=== PATIENT | female | born 1980 | race Caucasian/White ===

== ENCOUNTER 2016-11-14 17:36 | Inpatient (IN) | payer OTHER, MEDICAID ==
[~2016-11-14] VITALS: Ht 165.1 cm; Wt 70.7 kg
[~2016-11-14 17:36] MED LIST: HYDR-3605 PO; ONDA-53 PO
[2016-11-14 17:55] VITALS: BP 129/76; PULSE 113; RESP 20; O2SAT 100
--- NOTE | 2016-11-14 18:09 | ED.REPORT ---
HPI-General Illness Date of Service Nov 14, 2016 ED Provider: Rafael Wild MD Patient is a 36 year old female with a hx of endocarditis and AV valve replacement who presents to the ED via police for a [id number] exam complaining of progressively worsening sweats onset 3 days ago. Associated symptoms include midline, intermittent, sharp and dull chest pain and myalgia. She reports that her symptoms are similar to when she had endocarditis previously. She denies fever, abdominal pain, SOB, headache, vision changes, diarrhea, constipation, hematochezia, hematuria, or any other symptoms. She used IV heroin this morning. Nursing Notes Stated Complaint: FIT FOR USP Chief Complaint: General Complaint Nursing Notes Reviewed: Yes Allergies: Coded Allergies: No Known Allergies (Verified , 11/14/16) Miscellaneous Medications HydrOXYzine HCl (HydrOXYzine HCl) 10 Mg Tablet 10 MG PO Ondansetron (Ondansetron) 4 Mg Tablet 4 MG PO General Time Seen by MD: 18:07 Chief Complaint Other (Sweats ) Hx Obtained From: Patient Arrived By: Police Sudden in Onset?: Yes Onset Occurred: 3 days ago Symptom Duration: Since onset Location: : Chest Severity: Current: Mild Severity: Maximum: Mild Associated with: Denies: Headache, Vision change Pertinent Negative: Pt denies other symptoms Pertinent Negative: Exacerbated by nothing, Relieved by nothing Similar Sx Previous: Yes Past Medical History Past Medical History Notes: History of leaving [facility] History of bacterial endocarditis with subsequent prosthetic valve and endocarditis of prosthetic valve and valve replacement at [facility] in /March of this year. Consistently noncompliant with medical care and examined Past Medical History 1. 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 Heroin dependency. IV drug abuse with heroin and methamphetamine use. 3. Cigarette smoker with nicotine addiction. 4. Irregular menses. 5. C. difficile colitis treated July 2011. 6. Hep C Past Surgical History x3 cholecystectomy bioprosthetic aortic valve placement August 11, 2011 admit L arm abscess surgery October 2014 Gallbladder Tonsills Family History noncontributory Smoking History Current Every Day Smoker Social History Alcohol Use: Denies alcohol use Drug Use: IV drugs, Meth, THC, Other Other Social History: Poor social support, Local resident Ambulatory Status Independent Review of Systems Full Review of Systems Constitutional: Denies: Fever Respiratory: Denies: Shortness of breath Cardiovascular: Reports: Chest pain GI: Denies: Abdominal pain, Constipation, Diarrhea, Hematochezia Female: Denies: Hematuria Musculoskeletal: Reports: Myalgia Skin: Reports Diaphoresis Neurologic: Denies: Headache, Vision change Complete sys rev & neg: except as marked. Physical Exam Nursing note and vitals reviewed. Constitutional: Well-developed, well-nourished. Not diaphoretic. Head: Normocephalic and atraumatic. Mouth/Throat: Oropharynx is clear and moist. No oropharyngeal exudate. Eyes: EOM are normal. Pupils are 5-4 and equal, round, and reactive to light bilaterally Neck: Supple, no tracheal deviation. Cardiovascular: Normal rate, regular rhythm, Harsh 4/6 holosystolic murmur. Equal and intact distal pulses throughout. Pulmonary/Chest: Effort normal and breath sounds normal. No respiratory distress. Abdominal: Soft. No distension. There is no tenderness, rebound, or guarding. Musculoskeletal: Range of motion grossly intact, moving all extremities. Neurological: AOx3. Grossly nonfocal exam. Strength and sensation intact and equal to bilateral upper and lower extremities. Skin: Warm and mildly diaphoretic. No rashes or pallor appreciated. Psychiatric: Appropriate mood and affect. Behavior appears normal. Vital Signs Vital Signs Date Time Temp Pulse Resp B/P Pulse Ox O2 Delivery O2 Flow Rate FiO2 11/14/16 17:55 36.7 113 20 129/76 100 Room Air Interpretation & Diagnostics Lab Results Interpretation Result Diagram: 11/14/16184611/14/161846 Test 11/14/16 18:47 White Blood Count 7.5th/mm3 (3.8-10.1) Red Blood Count 3.95mil/mm3 (3.90-5.20) Hemoglobin 11.5g/dL (12.0-15.6) Hematocrit 35.8% (35.0-46.0) Mean Corpuscular Volume 90.6fL (81-100) Mean Corpuscular Hemoglobin 29.1pg (27.0-35.0) Mean Corpuscular Hemoglobin Concent 32.1% (32.0-37.0) Red Cell Distribution Width 13.1% (12.3-15.4) Platelet Count 315bil/L (150-400) Neutrophils (%) (Auto) 55.6% (40-74) Lymphocytes (%) (Auto) 30.0% (14-46) Monocytes (%) (Auto) 10.0% (4-12) Eosinophils (%) (Auto) 3.9% (0-5) Basophils (%) (Auto) 0.4% (0-3) D-Dimer 2.03mg/L FEU (<0.50) Sodium Level 142mEq/L (134-144) Potassium Level 3.7mEq/L (3.5-5.2) Chloride Level 106mEq/L (97-108) Carbon Dioxide Level 22mmol/L (18-29) Blood Urea Nitrogen 21mg/dL (6-20) Creatinine 0.86mg/dL (0.57-1.00) Estimat Glomerular Filtration Rate 108mL/min (>59) Glucose Level 89mg/dL (60-99) Lactic Acid Level 1.0mmol/L (0.4-2.0) Calcium Level 9.0mg/dL (8.5-10.1) Magnesium Level 2.0mg/dL (1.6-2.6) Total Bilirubin 0.5mg/dL (0.0-1.2) Aspartate Amino Transf (AST/SGOT) 23U/L (0-50) Alanine Aminotransferase (ALT/SGPT) 12U/L (0-32) Alkaline Phosphatase 70U/L (25-150) Total Creatine Kinase 462U/L (21-215) Total Protein 7.8g/dL (6.4-8.4) Albumin 3.6g/dL (3.4-5.0) Procalcitonin 0.13ng/mL (0.00-0.08) Hold Owens Top Tube Received (Received) ECG Interpretation ECG Interpretation: Sinus rate 86 Probable left atrial enlargement LVH Non-specific ST abnormalities from previous have improved. Time: 18:54 Interpreted by: ED physician X-Ray Chest Interpretation Chest Xray Interpretation: IMPRESSION: No acute cardiopulmonary disease. Dictated by: Dmitri Rosas M.D. on 11/14/2016 at 18:28 Approved by: Dmitri Rosas M.D. on 11/14/2016 at 18:29 View: Portable, 1 view Interpretation / Wet Read by: Interpret - Radiologist Re-Eval/Medical Decision Med Decision/Clinical Course 36-year-old female with a complex past medical history including endocarditis, aortic valve replacement, hepatitis C, and IV drug abuse presenting to the ED for evaluation of chest pain that she states is similar to when she has had endocarditis in the past. No acute ischemic changes on her EKG. She does have a harsh murmur. O2 sats are grossly within normal limits here, not dyspneic at this time. I discussed the case with the infectious disease specialist on-call , Dr. Truong, who recommended 3 sets of blood cultures and vancomycin. I initiated this in the ED and the patient will be admitted for further management and evaluation. Time of Eval: 19:38 Re-Evaluation/Progress Note: Discussed plan for admission. Patient understands and agrees with plan. All questions addressed at this time. Consultation #1: Referral / Consult Name: Yesenia Noyola DO Consulted With: Hospitalist Call Returned at: 20:08 Rice Farmer: Will see patient, Agrees with eval, Agrees with plan, Accepts admit Note: Discussed pt's case. Accepts admit. Consult infectious disease. Consultation #2: Referral / Consult Name: Geoff Truong MD Call Returned at: 20:15 Note: Discussed pt's case with infectious disease MD. Suggests vancomycin. Will consult. Counseled Regarding: Diagnosis, Lab results, Need for admission Discharge & Departure Primary Impression: Chest pain Chest pain type: unspecified Qualified Code: R07.9 - Chest pain, unspecified Additional Impression: History of bacterial endocarditis Disposition: ADMITTED TO HOSPITAL Discharge Condition All VS Reviewed: Yes Condition: Stable Referrals: August Rosas MD (PCP) Scribe Attestation Portions of this note were transcribed by Renny Jay. I, Dr. Wild personally performed the history, physical exam and medical decision-making; I reviewed and confirmed the accuracy of the information in the transcribed note. Signed by: Renny Jay 11/14/162019 copies to: August Rosas MD, William B MD Nov 14, 2016 18:09 RENNY JAY Nov 14, 2016 19:20
--- NOTE | 2016-11-14 18:31 | DRSVH ---
PROCEDURE: X-RAY CHEST ONE VIEW, PORTABLE ([id number]) INDICATIONS: 36 year-old female with chest pain. TECHNIQUE: One view of the chest was acquired. COMPARISON: [facility], CR, XR CHEST 2V AP/PA AND LAT, 07/07/2016, 9:03 AM. [facility], CR, XR CHEST 1VW (PORTABLE), 04/25/2016, 19:54. [facility], CR, XR CHEST 1 VW (PORTABLE), 04/19/2016, 16:06. FINDINGS: Surgical changes and devices: Patient is status post median sternotomy and cardiac valve replacement. Lungs and pleura: No pleural effusions or pneumothorax. Lungs are clear. Mediastinum: Mediastinal contours appear normal. Heart size is normal. Bones and chest wall: No suspicious bony lesions. Overlying soft tissues appear unremarkable. IMPRESSION: No acute cardiopulmonary disease. Dictated by: Dmitri Rosas M.D. on 11/14/2016 at 18:28 Approved by: Dmitri Rosas M.D. on 11/14/2016 at 18:29
[2016-11-14 18:53] LABS: BASOPHILS % (AUTO) 0.4 % (0-3); EOSINOPHILS % (AUTO) 3.9 % (0-5); Mean Corpuscular Hemoglobin 29.1 pg (27.0-35.0); Mean Corpuscular Volume 90.6 fL (81-100); NEUTROPHILS % (AUTO) 55.6 % (40-74); Platelet Count 315 bil/L (150-400)
[2016-11-14] MEDS ORDERED: 0.9% Sodium Chloride 1,000 ML IV ONE (19:05)
[2016-11-14 19:20] LABS: TROPONIN T < 0.010 ug/L (0.0-0.011)
[2016-11-14] MEDS ORDERED: Vancomycin Dose per Pharmacist XX ONE (20:15)
[2016-11-14] MEDS ORDERED: Ondansetron 2 mg/mL 2 mL Inj IVPUSH PRN ×2 (20:15→20:55)
[2016-11-14] MEDS ORDERED: Vancomycin Inj 1,500 MG in 0.9% Sodium Chloride 500 ML IV ONE (20:25)
[2016-11-14] MEDS: HYDROmorphone 0.5 mg/0.5 mL iSecure Syringe IVPUSH PRN ×2 (20:26→21:01)
[2016-11-14] MEDS ORDERED: Alum-Mag Hydrox-Simeth 30 mL Suspension PO PRN (20:55)
[2016-11-14] MEDS ORDERED: Polyethylene Glycol (PEG) 17 Gm Powder PO PRN (20:55)
[2016-11-14 21:07] VITALS: BP 92/33; PULSE 68; RESP 16; O2SAT 100
--- NOTE | 2016-11-14 21:17 | PCM.HPMED ---
Subjective Date of Service Nov 14, 2016 Primary Provider: Admitting Physician: Yesenia Noyola DO Primary Care Physician: Yuliana Smith MD Attending Physician: Yesenia Noyola DO Admit Status: From the Emergency Department, Remote Telemetry Chief Complaint: "chest pain" History of Present Illness: Ms. Diana Hair is a 36 year old woman with history of bacterial and fungal endocarditis, bio-prosthetic aortic valve replacement, and IV drug use who presented to the emergency department for retrosternal chest pain that started this morning. She was brought into the emergency department by police for a fit- for-custodial exam. She reports that she was washing dishes when her chest pain started this morning and has been intermittent since it started. It is retrosternal, and she describes it as severe, tugging, and sharp. She feels like she "is going to ." She has not experienced chest pain like this before. Her pain was not relieved with the pain medication that she received in the emergency department. She also has worsening diaphoresis and right anterior leg pain. She also has a global headache and anxiety that started in the emergency department. She has a right upper arm abscess that she reports has been there for 1 week. She does not have fever, vision changes, nasal congestion , sore throat, dyspnea, cough, vomiting, abdominal pain, dysuria, diarrhea, constipation, hematuria, hematochezia, melena, or rash. In the emergency department, vital signs were initially 36.7 degrees C, HR 113 bpm, respiratory rate 20, blood pressure 129/76, oxygen saturation 100% on room air. Infectious disease was contacted and recommended to start vancomycin. Dr. Truong agreed to see the patient in the morning. She was given a 1 L normal saline bolus, one dose of IV Dilaudid 0.5 mg for pain, and one dose of IV Zofran 4 mg for nausea. Review of Systems: A comprehensive review of systems was conducted with the patient and found to be negative except as above in the History of Present Illness. Allergies Coded Allergies: No Known Allergies (Verified , 11/14/16) Home Medications Patient denies taking any medications regularly. 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 Recurrent endocarditis in 04/2016, patient left against medical advice. Last echocardiogram in 04/2016, which showed EF 60-65%, moderate -severely dilated left ventricle, and an echo lucency around the bio-prosthetic valve, and severe aortic regurgitation. Reported history of fungal endocarditis in [place] Heroin dependence IV drug abuse with heroin and methamphetamine use Tobacco dependence Irregular menses Clostridium difficile colitis treated July 2011 Hepatitis C Surgical History Cesearan section x3 Cholecystectomy Nioprosthetic aortic valve placement August 11, 2011 Left arm abscess surgery October 2014 Tonsillectomy Family History Patient reports that mother and father are She denies family history of heart disease and diabetes mellitus Social History Hx Alcohol Use: No Hx Substance Use: Yes (denied during interview but reported to ED that last IV heroin use was this morning) Hx Tobacco Use: Yes (1/2 to 1 ppd) Smoking Status: Current Every Day Smoker Exam Vital Signs Vital Sign - Last Date Time Temp Pulse Resp B/P Pulse Ox O2 Delivery O2 Flow Rate FiO2 11/14/16 17:55 36.7 113 20 129/76 100 Room Air Exam General: A woman who appears stated age sitting in bed, well-developed, well- nourished HEENT: Normocephalic, atraumatic. External ears without defect. Bilateral mydriasis with 5 mm pupil diameter Anicteric sclerae, moist conjunctivae, and no lid lag. Oropharynx free of erythema and cobble stoning with moist mucosa. Neck: Supple with full range of motion. No lymphadenopathy or thyromegaly. Cardiovascular: Regular rate and rhythm with a IV/ diastolic murmur, no rubs or gallops appreciated Pulmonary: Clear to auscultation bilaterally with no crackles, wheezes, or rhonchi. Normal respiratory effort with no use of accessory muscles. Abdomen: Bowel tones present. Soft, nontender, nondistended. No hepatosplenomegaly or masses appreciated. Extremities: No clubbing, cyanosis, or edema appreciated. Skin: Scattered pinpoint lesions along veins. Approximately 2 mm eschar at right lateral upper arm with palpable induration without localized erythema, edema, or warmth. Erythema to bilateral upper extremity, upper chest, and face in distribution characteristic of sunburn. Normal temperature, turgor, and texture; no ulcers appreciated. Neurological: Cranial nerves grossly intact. Grossly normal muscle strength, tone, and bulk. No known gait impairment. Psychiatric: Anxious, paranoid, and agitated. Alert and oriented to person, place, and time. Lab and Diagnostics Labs Item Value Date Time Lactic Acid Level 1.0 mmol/L 11/14/161846 Total Creatine Kinase 462 U/L H 11/14/161846 Magnesium Level 2.0 mg/dL 11/14/161846 Total Bilirubin 0.5 mg/dL 11/14/161846 Aspartate Amino Transf (AST/SGOT) 23 U/L 11/14/161846 Alanine Aminotransferase (ALT/SGPT) 12 U/L 11/14/161846 Calcium Level 9.0 mg/dL 11/14/161846 Alkaline Phosphatase 70 U/L 11/14/161846 Troponin T < 0.010 ug/L 11/14/161846 Albumin 3.6 g/dL 11/14/161846 Procalcitonin 0.13 ng/mL H 11/14/161846 Result Diagram: 11/14/16184611/14/161846 X-Rays, CTs and MRIs PROCEDURE: X-RAY CHEST ONE VIEW, PORTABLE IMPRESSION: No acute cardiopulmonary disease. Approved by: Dmitri Rosas M.D. on 11/14/2016 at 18:29 12-lead ECG Sinus rhythm at 86 bpm, left atrial enlargement, and left ventricular hypertrophy Assessment & Plan Ms. Diana Hair is a 36 year old woman with history of bacterial and fungal endocarditis, bio-prosthetic aortic valve replacement, and IV drug use who presented to the emergency department for retrosternal chest pain. Chest pain, acute, present on admission, active. - Likely secondary to probable recurrent endocarditis. Differential diagnosis includes but not limited to: endocarditis given IV drug use with history of bacterial and fungal endocarditis with a bio-prosthetic valve, acute coronary syndrome, pneumonia, pneumothorax, or pulmonary embolism - Initial troponin negative and EKG did not show any concerning ST segment changes. CXR did not show any acute cardiopulmonary changes. She does not report a cough or dyspnea. - PERC rule score 1 based on initial elevated HR at 113 bpm and Wells' criteria 1.5 points, which is low risk for PE - D-dimer elevated - Trend troponin every 6 hours times 3 - Monitor on telemetry - Oxycodone as needed for pain - Antibiotics as below - HCG qualitative 0.500. betaHCG quantitative ordered for confirmation. Nursing is unable to establish a second IV access for IV contrast at this time. CTA PE protocol ordered for tomorrow morning. history of recurrent endocarditis, present on admission. - Echocardiogram in 04/2016 showed echo lucency around bio-prosthetic valve consistent with valve dehiscence associated with severe aortic regurgitation - Lactic acid within normal limits. SIRS criteria not met at time of admission. Procalcitonin mildly elevated at 0.13 on admission. - Blood cultures performed and pending - MRSA screen ordered - Infectious disease consulted in the ED. ID recommended starting vancomycin. His time and recommendations are appreciated. - Continue IV vancomycin dosed by pharmacy - Normal saline at 100 ml/hour - Echocardiogram ordered for the morning - Repeat CBC and procalcitonin with morning labs Chronic heroin dependence, present on admission, active. - Reported last IV heroin use today to ED - Drug screen ordered - Symptomatic care with Zofran as needed for nausea/vomiting - Oxycodone as needed for pain as above - Monitor blood pressure and if blood pressure stable, consider adding lorazepam for anxiety and/or clonidine for anxiety, hypertension, tachycardia - Social work referral placed right upper arm abscess, present on admission. - US of right upper arm ordered - Infectious disease consulted as above - Continue vancomycin Chronic tobacco dependence, present on admission, active. - Nicotine patch as needed for nicotine withdrawal Elevated creatine kinase, present on admission. - Likely related to above endocarditis and heroin use - CK 462 on admission - UA ordered - IV normal saline as above - Repeat CK with morning labs CODE STATUS: Patient refused to answer more questions. Will need to be revisited with patient. For now, FULL CODE. Patient Status: Patient is admitted under inpatient status with expected length of stay greater than 2 midnights due to severity of presenting symptoms, risk of adverse event, and complexity of treatment plan. VTE Prophylaxis: Sub-Q Heparin (Unfractionated) Resuscitation Status: CPR: Attempt Resuscitation Attending Statement The patient was seen and examined together with house staff on 11/14/2016 and I agree with the history, exam and plan as outlined in the note above. Alena Giraldo DO Nov 14, 2016 21:17 Yesenia Noyola DO Nov 15, 2016 04:12
[2016-11-14 21:48] VITALS: BP 106/54; PULSE 82; RESP 16; O2SAT 96
[2016-11-14] MEDS: 0.9% Sodium Chloride 1,000 ML IV SCH (21:58)
--- NOTE | 2016-11-14 23:30 | PCM.CONPHA ---
Subjective Date of Service: Nov 14, 2016 Requesting Provider: Alena Giraldo DO"chest pain History of Present Illness endocarditis Reason for Pharmacy Consult: Vancomycin Dosing Objective Assessment/Plan Assessment/Plan a/ - 36 y/o IVDU female with hx of bacterial and fungal endocarditis, bioprosthetic aortic valve replacement admitted in [facility] for onset of sharp chest pain; Vancomycin therapy is needed for treatment of suspected endocarditis. - Afebrile, WBC: 7.5, blood cultures, nasal MRSA screen, and UA pending - Wt: 70.7 kg, ht: 165 cm, BMI: 25.9 kg/m2, SCr: 0.86 mg/dL, estimated clearance ~ 103 ml/min, t1/2~8 hrs, Vd~49L - Received loading dose Vancomycin 1500mg in ED, no other antibiotic - ID consult ordered for tomorrow morning P/ - Give vancomycin 750mg iv q8h. Trough level ordered before 4th dose @2030 on 11/15. This regimen would produce a trough around 16 Pharmacy will follow and make necessary adjustment Thank you for consulting clinical pharmacy in the care of this patient Tonio Monk Nov 14, 2016 23:30
[2016-11-15] VITALS (9 sets, daily range): BP systolic 116–128; BP diastolic 53–71; PULSE 66–83; RESP 16–20; O2SAT 98–99
[2016-11-15] MEDS: Heparin 5,000 Unit/mL Inj SUBQ SCH ×3 (01:18→17:04)
[2016-11-15] MEDS: LORazepam 0.5 mg Tablet PO PRN ×3 (01:38→21:56)
[2016-11-15] MEDS: Vancomycin Inj 750 MG in 0.9% Sodium Chloride 250 ML IV SCH ×3 (05:34→21:56)
[2016-11-15 05:50] LABS: APPEARANCE,URINE CLOUDY (CLEAR,HAZY); COLOR,URINE DARK YELLOW (YELLOW); OCCULT BLOOD,URINE NEGATIVE (NEGATIVE)
[2016-11-15 06:39] LABS: BASOPHILS % (AUTO) 0.3 % (0-3); EOSINOPHILS % (AUTO) 3.7 % (0-5); Mean Corpuscular Volume 91.9 fL (81-100); NEUTROPHILS % (AUTO) 52.9 % (40-74); Platelet Count 255 bil/L (150-400)
[2016-11-15] MEDS: 0.9% Sodium Chloride 1,000 ML IV SCH ×2 (06:54→20:27)
[2016-11-15 07:13] LABS: TROPONIN T 0.01 ug/L (0.0-0.011)
--- NOTE | 2016-11-15 07:15 | NUR ---
Admit / Behavior / CT Pt arrived from ER to [facility] # [id number] approx at 2120. Pt not cooperative with care. She is verbally abusive and using profane language. Pt was talking in Burmese and [place] to someone that is not visible to staff. Pt also was making hand signs similar to gang hand signs while she is talking. Pt first language is Burmese but she chosen to speak Canadian to staff. Pt denies visual or auditory hallucinations. Pt refused nasal MRSA swap. Unsuccessful attempts to obtain 20 g IV access for angio chest CT. Dr. Giraldo notified. CT postponed until am when IV therapy available. VSS. No overt complications noted.
[2016-11-15] MEDS: Vancomycin Dose per Pharmacist XX SCH (09:22)
[2016-11-15] MEDS: Ertapenem Inj 1,000 MG in 0.9% Sodium Chloride 50 ML IV SCH (09:23)
--- NOTE | 2016-11-15 11:56 | NUR ---
Social Work: Screening Data: Pt is a 36 y/o female admitted for endocarditis. Pt's PCP is Dr Smith, pt's insurance is [facility] Blind/disabled. EMR reviewed. Pt discussed in rounds. Pt has hx of drug use, states no CD assessment will be ordered at this time, QUARTER BACKER will await possible CD assessment order. states that Palliative may be getting involved. QUARTER BACKER met with pt. She states that her car is parked in [place] because she was arrested there, she states that the [employer] police brought her to the hospital and released her. Pt reports that the air defense control officer who brought her here has her keys and wallet and she has been trying to contact them to have these returned, pt requested QUARTER BACKER call [email or web address] regarding this. QUARTER BACKER called [employer] main line, no answer, no voice mail set up with a message stating to call back on Wednesday during business hours. Assessment: Pt who is independent at baseline, drug use. Plan: Pt will likely d/c home via taxi or bus to her car, pt concerned about her keys with the [employer] police. states no CD assessment will be ordered at this time, QUARTER BACKER will await possible CD assessment order. QUARTER BACKER will continue to follow. [facility]
--- NOTE | 2016-11-15 12:28 | NUR ---
Pain/Behavior/Concerns: Patient complaining of rib and "heart" pain 4/10 on pain scale. Per protocol Oxycodone 5mg administered. Patient complaining that 5mgs is not enough to control her pain "that's nothing, I need Morphine", "I want to leave", "you're not doing anything for me here", "Can I call a stripe marker?" Explained to patient that she is getting pain medication and antibiotics and that she was welcome to call whomever she wished. Offered to call MD to ask about increasing pain medication. MD notified and pain medication was increased. Oxycodone 10mg administered along with Ativan. Will continue to follow. Patient also has concerns about her belongings (keys, phone and cigarettes), insisting that we unlock closet and search belongings. Went through belongings, called ED. Personal belongings, except for clothing is not in closet, ED or locked in safe. Relayed information to patient. She states "I know they're not here, the [place] Police have them." Case Management notified of patient concerns.
--- NOTE | 2016-11-15 13:03 | PCM.PNMED ---
Subjective Date of Service Nov 15, 2016 Subjective She is seen in her room to follow-up the endocarditis and methamphetamine/ opiate withdrawal. She also has a right arm skin abscess that she says was drained at [facility] a few days ago, but that she did not fill the antibiotic prescription for. She has been on vancomycin IV since yesterday. A CT angiogram of the chest and echocardiogram are pending today. She looks like she is in acute withdrawal although denies that. Exam Vital Signs Vital Sign - Last Date Time Temp Pulse Resp B/P Pulse Ox O2 Delivery O2 Flow Rate FiO2 11/15/16 09:01 76 11/15/16 06:07 36.6 17 120/69 99 Room Air Intake and Output 11/14/16 11/14/16 11/15/16 Cumulative From/Thru 15:00 23:00 07:00 11/14/16 17:55 - 11/15/16 06:07 Intake Total 1000 ml 2092 ml 3092 ml Output Total 400 ml 400 ml Balance 1000 ml 1692 ml 2692 ml Intake Oral 900 ml 900 ml IV Total 1000 ml 1192 ml 2192 ml Output Urine Total 400 ml 400 ml Exam She is alert and oriented 3 and appears to be in moderate distress from withdrawal type diaphoresis/anxiety. Heart is regular rate and rhythm with loud systolic and diastolic murmurs, both. Lungs are clear to auscultation bilaterally There is no ankle edema There is a small incision over a small residual abscess of the right biceps area with some purulent discharge noted. Lab and Diagnostics Result Diagram: 11/15/16 0614 11/15/16613 X-Rays, CTs and MRIs PROCEDURE: X-RAY CHEST ONE VIEW, PORTABLE IMPRESSION: No acute cardiopulmonary disease. Approved by: Dmitri Rosas M.D. on 11/14/2016 at 18:29 12-lead ECG Sinus rhythm at 86 bpm, left atrial enlargement, and left ventricular hypertrophy Assessment & Plan Ms. Diana Hair is a 36 year old woman with history of bacterial and fungal endocarditis, bio-prosthetic aortic valve replacement, and IV drug use who presented to the emergency department for retrosternal chest pain. Chest pain, acute, present on admission, active. - Likely secondary to probable recurrent endocarditis. Differential diagnosis includes but not limited to: endocarditis given IV drug use with history of bacterial and fungal endocarditis with a bio-prosthetic valve, acute coronary syndrome, pneumonia, pneumothorax, or pulmonary embolism - Initial troponin negative and EKG did not show any concerning ST segment changes. CXR did not show any acute cardiopulmonary changes. She does not report a cough or dyspnea. - PERC rule score 1 based on initial elevated HR at 113 bpm and Wells' criteria 1.5 points, which is low risk for PE - D-dimer elevated - Monitor on telemetry - Oxycodone as needed for pain, no indication for IV pain control without first failing oral. - Antibiotics as below - CTA is pending history of recurrent endocarditis, present on admission. - Echocardiogram in 04/2016 showed echo lucency around bio-prosthetic valve consistent with valve dehiscence associated with severe aortic regurgitation - Lactic acid within normal limits. SIRS criteria not met at time of admission. Procalcitonin mildly elevated at 0.13 on admission. - Blood cultures performed and pending - MRSA screen ordered - Infectious disease consulted in the ED. ID recommended starting vancomycin. His time and recommendations are appreciated. - Continue IV vancomycin dosed by pharmacy - Single ertapenem IV dose ordered today as a precaution, pending blood culture results. - Normal saline at 100 ml/hour - Echocardiogram is pending - Plan daily ESR - She indicates she will leave AGAINST MEDICAL ADVICE unless she receives IV pain medicine, but refuses Toradol. We will treat with oral pain medicine today Severe Aortic Regurgitation - She appears to be hospice appropriate, pending echocardiogram confirmation. Surgery is probably not even an actual possibility, due to the severity of the condition, her recurrent drug use and her general attitude. Chronic heroin dependence, present on admission, active. - Reported last IV heroin use today to ED - Drug screen positive for methamphetamines and opiates. - Symptomatic care with Zofran as needed for nausea/vomiting - Oxycodone as needed for pain as above, no indication for IV morphine that she is requesting - Monitor blood pressure and if blood pressure stable, consider adding lorazepam for anxiety and/or clonidine for anxiety, hypertension, tachycardia - Social work referral placed right upper arm abscess, present on admission. - US of right upper arm ordered, surgical consult requested. - Infectious disease consulted as above - Continue vancomycin, with additional ertapenem today. Chronic tobacco dependence, present on admission, active. - Nicotine patch as needed for nicotine withdrawal Elevated creatine kinase, present on admission. - Likely related to above endocarditis and heroin use - CK 462 on admission, now down to 267 - IV normal saline as above CODE STATUS ; FULL CODE. Patient Status: Patient is continued under inpatient status with expected length of stay greater than 2 midnights due to severity of presenting symptoms, risk of adverse event, and complexity of treatment plan. VTE Prophylaxis: Sub-Q Heparin (Unfractionated) Resuscitation Status: CPR: Attempt Resuscitation Sunshine Will MD Nov 15, 2016 09:19
--- NOTE | 2016-11-15 17:59 | CONS ---
[address] [address] CONSULTATION REPORT PATIENT: AAYUSH SANCHEZ : 1980 MR#: [id number] ADMIT: 11/14/2016 JOB ID: [id number] DATE OF SERVICE: 11/15/2016 REASON FOR CONSULTATION: Possible recurrent endocarditis. HISTORY OF THE PRESENT ILLNESS: The patient is a 36-year-old woman well known to me for an extraordinary history of bacteremias and endocarditis episodes related to IV drug use. I last saw the patient in April 2016 when she was en route to [facility] and was brought by for an evaluation to see if she was fit to be confined. At that time, an echo showed a very precarious bioprosthetic aortic valve with an apparent ongoing but chronic dehiscence and possible vegetation, but the patient did not appear acutely infected. She was subsequently taken to [facility] where she says she served a couple of months and then went to drug rehab which she says was entirely successful and she has been drug-free for a couple of months. Some notes in the chart indicate she has told other observers differently and that she may still be using intravenous drugs and it is worth noting that a urine tox screen is positive for opiates and amphetamines as of this morning. The patient presented to the emergency department yesterday with what she describes as six months of worsening retrosternal severe chest pain. Notes in the chart indicate that she was actually brought to the ED once again for a fit for [facility] exam, and that is how she ended up in the emergency department, but in any event, the patient states she has had six months of increasing retrosternal lower thoracic chest pain which is constant and does not seem to change with respiration, movement or activity. She states it feels like she is going to at any time. She states that she has an evaluation scheduled with Cardiology and/or CT surgery at [place], but she is not sure with whom or exactly on what day, she thinks it may be November 23. There has been no associated fevers, chills, or sweats, though she does note that she had an abscess in her right upper arm that was apparently evaluated at [facility] in the recent past. She has no cough and reports that she has not had any GI or genitourinary symptoms. The patient is quite adamant though that her chest pain is of such severity that she feels her is imminent and requests higher doses of morphine or other analgesics so that she can at least in peace. PAST MEDICAL HISTORY: 1. Polysubstance abuse, using heroin and amphetamines. 2. Multiple episodes of bacteremia and endocarditis. a. MSSA endocarditis in the year 1999 with placement of a porcine aortic valve. b. Enterococcal bacteremia with probable endocarditis 2011. c. Bacillus cereus bacteremia. d. 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 3. Chronic pain. 4. History of dysfunctional uterine bleeding. 5. History of C. diff. 6. History of MRSA infections. 7. History of multiple attempts at drug rehab. SOCIAL HISTORY: The patient currently lives with relatives in the nearby area. She does not drink alcohol but does smoke cigarettes. She has three children who are not currently living with her. FAMILY HISTORY: Negative in first and second-degree relatives for TB. REVIEW OF SYSTEMS: The patient states that she has been weak for several months and that she is unable to walk too far due to progressive weakness in her legs but not, interestingly, shortness of breath or chest pain. She states that she has had some headaches recently which have been fairly severe but are not present currently. No visual complaints at all. No sore throat, odynophagia or dysphagia. No stiff neck. Minimal to no cough. No classic retrosternal upper chest pain, but she has diffuse lower rib cage pain which is bilateral, is constant, is agonizing and does not change with position or respiration. She has had a bit of nausea. No vomiting or diarrhea. No dysuria, urgency, or frequency. She had an abscess in the right upper arm that was apparently drained at the [facility], though we do not have complete records. Remainder of the review of systems negative. PHYSICAL EXAMINATION: Reveals a fairly calm woman lying supine in her hospital bed. She has been afebrile since her admission. She is currently 36.7, pulse 66, respiratory rate 18, blood pressure 128/57, saturating 99% on room air. Examination of the head: No trauma. Eyes without conjunctival hemorrhages or scleral icterus. Nose is normal. Oral cavity without thrush or hairy leukoplakia. Neck is supple. Lungs quite clear posteriorly. Cardiac tones are truly amazing. She has regular rate and rhythm with about a 3/6 systolic murmur and about a 4/6 diastolic murmur heard all across the precordium. This is an extraordinary systolic-diastolic collection of murmurs. In addition, she has very unusual pulses in her extremities which I think represent the pulses of aortic insufficiency. These are bounding, sustained, forward pulses. Her abdomen is soft and nontender. I did not appreciate any organomegaly. She does not have a Andrew catheter. She does not have any evidence of synovitis. There are no petechia present on the lower extremities. She has no Janeway or Osler's lesions nor does she have any splinter hemorrhages on her hands. Her lower extremity strength seems intact. There are no obvious abscesses though one can see in the right upper extremity where an abscess may been drained recently but does not appear grossly infected today. LABORATORY DATA: White count 6000, normal diff, sed rate 41, creatinine 0.67. LFTs normal. Procalcitonin 0.12. Urinalysis without red cells. There are a few white cells, 6-10. HIV negative. Urine tox as mentioned positive. Blood cultures x3 sets obtained yesterday evening after I spoke to the ED team are all negative. Urine culture is negative. MRSA screen is negative. Looking back at the fungal blood cultures we had kept for a month back in April these were all eventually negative. A CT scan of the chest was completed this morning, but I see no report. A chest x-ray done yesterday was clear. I have personally reviewed the CT scan of the chest which was a CT angiogram on the computer. There do seem to be pulmonary nodules present in the chest bilaterally, but I am not an expert reader of CT scans and will defer a final reading to the radiologist, but I am concerned about the possibility of some pulmonary nodularity which may not have been present previously. Note that this is not seen on the chest x-ray. IMPRESSION: When I initially was contacted last night by the ED, I was very concerned this patient might have recurrent endocarditis as she has a very damaged aortic valve which we have not yet imaged on this admission. After seeing the patient and looking at her laboratories, I am perhaps less concerned. She does not appear to be toxic and her main complaint is just a severe lower chest pain which is, of course, worrisome but would not be entirely typical of endocarditis. She is not in florid congestive heart failure nor does she appear to be throwing emboli or having any yesenia decompensation of that aortic valve. Nonetheless, she has very striking systolic and diastolic murmurs and unusual palpable pulses, and I think, as before, we know that her bioprosthetic aortic valve is basically falling apart with evidence of dehiscence and other issues. As to whether she may have endocarditis now, it is difficult to tell, but I would be inclined to think not. The only concern may be the nodularity seen on the CT scan of the chest, but will await the final radiology interpretation. RECOMMENDATIONS: 1. We await the three blood cultures done yesterday. 2. Will continue the patient on vancomycin alone while we wait for some clarity about whether or not she has endocarditis at this time. 3. She certainly needs a transthoracic echo to start tomorrow and may eventually need a transesophageal echo, but it may be that would be better done at a center where she may be a candidate for valve replacement. BIMAL
--- NOTE | 2016-11-15 18:16 | DRSVH ---
PROCEDURE: CT ANGIO CHEST PULMONARY EMBOLISM ([id number]) INDICATIONS: chest pain, elevated d-dimer TECHNIQUE: After the administration of intravenous contrast, 2 mm thick sections acquired from the pulmonary api latha to the posterior costophrenic angles. 3-dimensional maximum intensity projection (MIP) coronal a nd sagittal reformats were then acquired through the thorax. For radiation dose reduction, the follo wing was used: automated exposure control, adjustment of mA and/or kV according to patient size. COMPARISON: [facility], CR, XR CHEST 1VW (PORTABLE), 11/14/2016, 18:00. [facility], CT, CHEST ANGIO-PE, 08/07/2014, 10:14. FINDINGS: Image quality: Excellent. Pulmonary arteries: Pulmonary arteries are normal in size, and demonstrate no intraluminal filling d efects to suggest central pulmonary embolism. Lungs and pleura: Lungs are clear. No pleural effusions or pneumothorax. Central and peripheral ai rways are patent. Mediastinum: Heart size is normal, without pericardial effusion. There is aortic valve prosthesis. No mediastinal or hilar adenopathy. Thoracic aorta is normal in caliber and enhancement. Esophagus is normal in caliber, without hiatal hernia. Bones and chest wall: There is sternotomy. No suspicious bony lesions. Ribs and thoracic spine appe ar intact throughout. The right thyroid lobe is enlarged. No axillary or supraclavicular adenopathy. Abdomen: Visualized upper abdominal solid organs appear normal in the early arterial phase of enhanc ement. IMPRESSION: 1. No evidence for central pulmonary embolism. 2. Enlarged right thyroid lobe. Please correlate with thyroid function tests. A thyroid ultrasound is suggested for followup. 6. Sternotomy and prosthetic aortic valve. Dictated by: Ashley Meyers M.D. on 11/15/2016 at 18:11 Approved by: Ashley Meyers M.D. on 11/15/2016 at 18:14
[2016-11-15] MEDS ORDERED: Vancomycin Serum Trough XX ONE (20:30)
[2016-11-16 00:42] VITALS: BP 121/48; PULSE 69; RESP 20; O2SAT 98
[2016-11-16] MEDS: Heparin 5,000 Unit/mL Inj SUBQ SCH ×2 (00:43→08:39)
[2016-11-16 04:50] VITALS: BP 122/60; PULSE 62; RESP 22; O2SAT 98
[2016-11-16] MEDS: 0.9% Sodium Chloride 1,000 ML IV SCH (05:23)
[2016-11-16] MEDS: Vancomycin Inj 750 MG in 0.9% Sodium Chloride 250 ML IV SCH ×2 (05:26→12:54)
--- NOTE | 2016-11-16 06:17 | NUR ---
Pain: Pt has reported rib pain most of the night at 3-4/10, scheduled and PRN meds administered. Pt able to rest quietly after meds. 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 Pt has been cooperative with chitra hopkins.
[2016-11-16 06:49] LABS: Mean Corpuscular Hemoglobin 28.8 pg (27.0-35.0); Mean Corpuscular Volume 92.2 fL (81-100)
--- NOTE | 2016-11-16 08:26 | DRSVH ---
PROCEDURE: US EXTREMITY SONOGRAM LIMITED ([id number]) INDICATIONS: right upper lateral arm ?abscess TECHNIQUE: Real-time scanning was performed of the right arm, upper outer aspect and area of current clinical concern, with image documentation. COMPARISON: None. FINDINGS: There is a 7.7 x 3.7 x 1.9 cm inflammatory mass like structure seen at the area of current clinical concern without visualized internal liquid content. This appears most likely to represent a phlegmon. There is what appears to be a cutaneous defect tracking towards the inflammatory process, perhaps representing a penetrating wound. IMPRESSION: Significant sized phlegmon within the soft tissues in the area of current clinical concer n, deep to an area of apparent small cutaneous defect which might represent a surface wound with unde rlying early abscess formation. Currently, liquid within this area that would be amenable to ultraso und-guided aspiration is not seen. Dictated by: Anthony Hooker M.D. on 11/16/2016 at 8:22 Approved by: Anthony Hooker M.D. on 11/16/2016 at 8:24
[2016-11-16] MEDS: Ertapenem Inj 1,000 MG in 0.9% Sodium Chloride 50 ML IV SCH (08:40)
[2016-11-16] MEDS: Vancomycin Dose per Pharmacist XX SCH (08:45)
[2016-11-16 09:45] VITALS: BP 110/55; PULSE 57; RESP 20; O2SAT 100
[2016-11-16 10:46] VITALS: PULSE 67
[2016-11-16] MEDS: LORazepam 0.5 mg Tablet PO PRN (12:00)
--- NOTE | 2016-11-16 13:54 | PCM.PNMED ---
Subjective Date of Service Nov 16, 2016 Subjective 36 yo with a failing porcine AV (placed after a prior endocarditis hx and treatment), continued IVdU, hx of bacteriala s well as fungla endocarditis, no on abx therapy here. Definitive tx is to get a MADHAV and get her valve replaced. She got an echo this AM, not read yet. She is worried about a card she left infront of a Exam Vital Signs Vital Sign - Last Date Time Temp Pulse Resp B/P Pulse Ox O2 Delivery O2 Flow Rate FiO2 11/16/16 04:50 36.8 62 22 122/60 98 Room Air Intake and Output 11/15/16 11/15/16 11/16/16 Cumulative From/Thru 15:00 23:00 07:00 11/14/16 17:55 - 11/16/16 04:54 Intake Total 2134 ml 1103 ml 6329 ml Output Total 1500 ml 1900 ml Balance 634 ml 1103 ml 4429 ml Intake Oral 920 ml 1820 ml IV Total 1214 ml 1103 ml 4509 ml Output Urine Total 1500 ml 1900 ml # Bowel Movements 1 1 Exam She is alert and oriented 3 and appears to be in moderate distress from withdrawal type diaphoresis/anxiety. Heart is regular rate and rhythm with loud systolic and diastolic murmurs, both. Lungs are clear to auscultation bilaterally There is no ankle edema There is a small incision over a small residual abscess of the right biceps area with some purulent discharge noted. Lab and Diagnostics Result Diagram: 11/15/16 0614 11/15/16 0614 X-Rays, CTs and MRIs PROCEDURE: X-RAY CHEST ONE VIEW, PORTABLE IMPRESSION: No acute cardiopulmonary disease. Approved by: Dmitri Rosas M.D. on 11/14/2016 at 18:29 12-lead ECG Sinus rhythm at 86 bpm, left atrial enlargement, and left ventricular hypertrophy Assessment & Plan Ms. Diana Hair is a 36 year old woman with history of bacterial and fungal endocarditis, bio-prosthetic aortic valve replacement, and IV drug use who presented to the emergency department for retrosternal chest pain. Chest pain, acute, present on admission, active. - Likely secondary to probable recurrent endocarditis. Differential diagnosis includes but not limited to: endocarditis given IV drug use with history of bacterial and fungal endocarditis with a bio-prosthetic valve, acute coronary syndrome, pneumonia, pneumothorax, or pulmonary embolism - Initial troponin negative and EKG did not show any concerning ST segment changes. CXR did not show any acute cardiopulmonary changes. She does not report a cough or dyspnea. - PERC rule score 1 based on initial elevated HR at 113 bpm and Wells' criteria 1.5 points, which is low risk for PE - D-dimer elevated - Monitor on telemetry - Oxycodone as needed for pain, no indication for IV pain control without first failing oral. - Antibiotics as below - CTA PE PRotocol: suspicious for lung nodules per Dr Wilhelm history of recurrent endocarditis, present on admission. - Echocardiogram in 04/2016 showed echo lucency around bio-prosthetic valve consistent with valve dehiscence associated with severe aortic regurgitation - Lactic acid within normal limits. SIRS criteria not met at time of admission. Procalcitonin mildly elevated at 0.13 on admission. - Blood cultures performed and pending - MRSA screen ordered - Infectious disease consulted in the ED. ID recommended starting vancomycin. His time and recommendations are appreciated. - Continue IV vancomycin dosed by pharmacy - Single ertapenem IV dose ordered today as a precaution, pending blood culture results. - Normal saline at 100 ml/hour - Echocardiogram is pending - Plan daily ESR - She indicates she will leave AGAINST MEDICAL ADVICE unless she receives IV pain medicine, but refuses Toradol. We will treat with oral pain medicine today Severe Aortic Regurgitation - She appears to be hospice appropriate, pending echocardiogram confirmation. Surgery is probably not even an actual possibility, due to the severity of the condition, her recurrent drug use and her general attitude. Chronic heroin dependence, present on admission, active. - Reported last IV heroin use today to ED - Drug screen positive for methamphetamines and opiates. - Symptomatic care with Zofran as needed for nausea/vomiting - Oxycodone as needed for pain as above, no indication for IV morphine that she is requesting - Monitor blood pressure and if blood pressure stable, consider adding lorazepam for anxiety and/or clonidine for anxiety, hypertension, tachycardia - Social work referral placed right upper arm abscess, present on admission. - US of right upper arm ordered, surgical consult requested. - Infectious disease consulted as above - Continue vancomycin, with additional ertapenem today. Chronic tobacco dependence, present on admission, active. - Nicotine patch as needed for nicotine withdrawal Elevated creatine kinase, present on admission. - Likely related to above endocarditis and heroin use - CK 462 on admission, now down to 267 - IV normal saline as above CODE STATUS ; FULL CODE. Patient Status: Patient is continued under inpatient status with expected length of stay greater than 2 midnights due to severity of presenting symptoms, risk of adverse event, and complexity of treatment plan. VTE Prophylaxis: Sub-Q Heparin (Unfractionated) Resuscitation Status: CPR: Attempt Resuscitation Angelique Redding DO Nov 16, 2016 05:36
--- NOTE | 2016-11-16 14:05 | PCM.DIMED ---
Discharge Instructions Date of Service Nov 16, 2016 Dates of Hospitalization Nov 14, 2016 at 21:02 Discharge Diagnosis Discharge Diagnosis Dehiscence of Prosthetic AV, Hx of bacterial and fungal endocardiis, IVDU Diet Discharge Diet: No restrictions Activity Discharge Activity: No restrictions Call your provider Call your provider for: Fever or Chills, Shortness of breath, Bleeding, Chest pain, Vomitting, Excessive diarrhea, Weakness (unilateral), Other Patient Instructions Patient Instructions We feel that you should remain in the hospital until we can give you a plan for your valve follow up. We can no prescribe pain meds as youa re leaving AMA Follow-up with PCP in: 1 week Angelique Redding DO Nov 16, 2016 14:05
--- NOTE | 2016-11-16 14:15 | NUR ---
Leaving AMA: Patient concerned about [place] [employer] department having possession of personal belongings (car keys, phone) and her car being parked at a [employer] station. Expressed that she is concerned that her car will be towed. sweetbread trimmer spoke with patient and educated patient on risk for leaving AMA. This RN, Dr Redding, sweetbread trimmer, and Dr Truong present. Patient stating she is going to leave and come back through the ED. sweetbread trimmer discontinued IV, telemetry removed, security removed lock on closet for patient to obtain clothing. Requesting bus pass, explained that according to Case Management that we cannot provide bus passes when patient leaving AMA. Patient using foul language toward this RN when I explained CM answer about bus pass. Patient ambulated off unit at approx 1415. No apparent distress noted at time of leaving.
--- NOTE | 2016-11-16 14:25 | NUR ---
Social Work- discharge SW updated by assistant professor of forestry that pt has left AMA. Celia Sanchez,TOOL OPERATOR
--- NOTE | 2016-11-16 14:27 | DRSVH ---
[facility] [address] [place] [address] Echocardiogram Report Name: AAYUSH SANCHEZ YStudlolly Kolton e: 11/16/2016 Height: 65 in Hospital Exam Location: [facility] Weight: 156 lb Gender: Female BSA: 1.8 m2 : 1980 Age: 36 yrs BP: 122/60 mm Hg Reason For Study: Endocarditis Performed By: Tonya Gutierrez Referring Physician: ROHAN IBARRA Interpretation Summary The ejection fraction is estimated to be 60-65%. There is a bioprosthetic aortic valve. Valve leaflets are thickenend, particularly the RCC, There is an echo free space oround the valve which could repesent perivalvular abscess.A MADHAV is recommended. There is severe aortic regurgitation. There is moderate holodiastolic flow reversal in the descending thoracic aorta. There is moderate holodiastolic flow reversal in the proximal abdominal aorta. There is mild tricuspid regurgitation. The right ventricular systolic pressure is estimated at 38 mmHg assuming a right atrial pressure of 15 mm Hg. Procedure: A two-dimensional transthoracic echocardiogram with color flow and Doppler was performed. The study quality was technically adequate. The patient was in normal sinus rhythm during the exam. The heart rate ranged between 61-67 bpm during the study. Left Ventricle: The ejection fraction is estimated to be 60-65%. Right Ventricle: The right ventricle is normal in size and function. Atria: The left atrium is moderately dilated. The right atrium is mildly dilated. The interatrial septum is intact with no evidence for an atrial septal defect. Mitral Valve: The mitral valve is normal in structure and function. There is trace mitral regurgitation. Aortic Valve: There is a bioprosthetic aortic valve. Valve leaflets are thickenend, particularly the RCC, There is an echo free space oround the valve which could repesent perivalvular abscess.A MADHAV is recommended. The aortic valve mean gradient is 25 mmHg. There is severe aortic regurgitation. There is moderate holodiastolic flow reversal in the descending thoracic aorta. There is moderate holodiastolic flow reversal in the proximal abdominal aorta. Tricuspid Valve: The tricuspid valve is not well visualized. There is mild tricuspid regurgitation. The right ventricular systolic pressure is estimated at 38 mmHg assuming a right atrial pressure of 15 mm Hg. Pulmonic Valve: The pulmonic valve is not well visualized. Great Vessels: The IVC is dilated (diameter is greater than 2.1 cm) and it collapses less than 50% with a sniff. This suggests a high right atrial pressure of 15 mm Hg. Pericardium/ Pleura There is no pericardial effusion. There is no pleural effusion. MMode/2D Measurements & Calculations LVIDd: 5.2 cm LA A2 area RA area LV crandall. diameter/BSA LVIDs: 3.5 cm (cm/m^2): 2.9 FS: 33.4 % : 12.0 2m IVSd: 1.3 cm LA A4 area LVPWd: 1.1 cm LA length (vol) LA vol: 71.8 ml LA vol index : 40.4 ml/m2 LV sys. diameter/BSA TAPSE: 2.4 cm (cm/m^2): 2.0 Doppler Measurements & Calculations Ao V2 max MV E max miky MV E/A: 3.1 TR max miky : 335.7 cm/sec : 96.7 cm/sec Med Peak E' Miky : 242.4 cm/sec Ao max PG MV A max miky TR max PG : 45.1 mmHg : 31.5 cm/sec E/E' med: 9.1 : 23.5 mmHg Ao mean PG Lat Peak E' Miky : 25.3 mmHg LVOT Max Miky E/E' lat: 8.4 : 108.8 cm/sec E/e' average: 8.8 sev ratio: 0.33 MV dec time Ao V2 mean LV V1 max PG : 0.14 sec : 236.4 cm/sec Ao V2 VTI: 79.6 cm LV V1 VTI: 26.0 cm Electronically signed by: Vargas Brown on Reading Physician:11/16/2016 02:26 PM
--- NOTE | 2016-11-16 16:20 | PROG NOTE ---
[address] [address] PROGRESS NOTE PATIENT: AAYUSH SANCHEZ : 1980 MR#: [id number] ADMIT: 11/14/2016 JOB ID: [id number] DATE: 11/16/2016 REASON FOR FOLLOWUP: Possible endocarditis in an IV drug user with definite bioprosthetic aortic valve dysfunction. INTERVAL HISTORY: Overnight, the patient has been free of fevers or chills. She continues to have chest pain which has been with her for months but which she states is slowly worsening. This chest pain is in the lower part of the chest and extends to the ribs bilaterally. She has had no trouble breathing. No nausea, vomiting, diarrhea. PHYSICAL EXAMINATION: Reveals an afebrile woman. She has been afebrile since admission. Temp 36.6, pulse 67, respiratory rate 20, blood pressure 110/55. She is saturating well on room air. Examination of the mental status reveals it to be clear. Lungs relatively clear. Cardiac tones with 3/6 systolic and 3/6 diastolic murmur. The rhythm is regular. Her abdomen is soft and nontender. She has water hammer pulses in her wrist. LABORATORIES: Include white count 7200 a day. Sed rates have fallen to 31. Creatinine 0.67 yesterday. CRP is 0.5 today and a sedimentation rate 31, as mentioned. She has no red cells, 6-10 white cells. Urine tox was positive which may belie the drug history provided that she had stopped using drugs two months ago. MRSA screen of the nares and six bottles of blood cultures are negative as is urine culture. Her echocardiogram was just read. The ejection fraction remains at 60%. There is free space around the valve which could represent a perivalvular abscess and MADHAV is recommended. There is severe aortic regurgitation. Holodiastolic flow reversal is seen in the descending aorta. IMPRESSION: It remains unclear whether this patient has endocarditis now, but this is another in a series of very worrisome echocardiograms evaluating her bioprosthetic aortic valve. 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 It now seems as if this valve was increasingly dysfunctional and may even be infected with a perivalvular abscess. In any event, it is clearly not functioning well as she has an increasing diastolic murmur and the appearance of the valve on echo continues to deteriorate. RECOMMENDATIONS: 1. The patient should stay here in the hospital as we continue to watch her many blood cultures that are negative at about 40 hours. 2. The patient needs a transesophageal echo. 3. The patient likely needs transfer to a higher level of care for aortic valve replacement. 4. The patient has informed us she is signing out AMA in the next few minutes so that she can go move a car in which she lives from an illegal location to a better spot. She then says she will be coming back through the emergency department.
--- NOTE | 2016-11-22 23:39 | PCM.DC.MED ---
Discharge Summary Date of Service Nov 16, 2016 Dates of Hospitalization Date of Hospital Admission Nov 14, 2016 at 21:02 Date of Discharge: Nov 16, 2016 Providers: Admitting Physician: Angelique Jimenez DO Primary Care Physician: Yuliana Smith MD Attending Physician: Angelique Jimenez DO Diagnosis at Time of Discharge Diagnosis at Time of Discharge Dehiscence of Prosthetic AV, Hx of bacterial and fungal endocardiis, IVDU Consultations ID, Cardiology Procedures XRay, CTs & MRIs PROCEDURE: X-RAY CHEST ONE VIEW, PORTABLE IMPRESSION: No acute cardiopulmonary disease. Approved by: Dmitri Rosas M.D. on 11/14/2016 at 18:29 ECG 12 Lead Sinus rhythm at 86 bpm, left atrial enlargement, and left ventricular hypertrophy Brief History Ms. Diana Hair is a 36 year old woman with history of bacterial and fungal endocarditis, bio-prosthetic aortic valve replacement, and IV drug use who presented to the emergency department for retrosternal chest pain that started this morning. She was brought into the emergency department by police for a fit- for-skilled nursing exam. She reports that she was washing dishes when her chest pain started this morning and has been intermittent since it started. It is retrosternal, and she describes it as severe, tugging, and sharp. She feels like she "is going to ." She has not experienced chest pain like this before. Her pain was not relieved with the pain medication that she received in the emergency department. She also has worsening diaphoresis and right anterior leg pain. She also has a global headache and anxiety that started in the emergency department. She has a right upper arm abscess that she reports has been there for 1 week. She does not have fever, vision changes, nasal congestion , sore throat, dyspnea, cough, vomiting, abdominal pain, dysuria, diarrhea, constipation, hematuria, hematochezia, melena, or rash. In the emergency department, vital signs were initially 36.7 degrees C, HR 113 bpm, respiratory rate 20, blood pressure 129/76, oxygen saturation 100% on room air. Infectious disease was contacted and recommended to start vancomycin. Dr. Truong agreed to see the patient in the morning. She was given a 1 L normal saline bolus, one dose of IV Dilaudid 0.5 mg for pain, and one dose of IV Zofran 4 mg for nausea. Hospital Course Ms. Diana Hair is a 36 year old woman with history of bacterial and fungal endocarditis, bio-prosthetic aortic valve replacement, and IV drug use who presented to the emergency department for retrosternal chest pain. Chest pain, acute, present on admission, active. - Likely secondary to probable recurrent endocarditis. Differential diagnosis includes but not limited to: endocarditis given IV drug use with history of bacterial and fungal endocarditis with a bio-prosthetic valve, acute coronary syndrome, pneumonia, pneumothorax, or pulmonary embolism - Initial troponin negative and EKG did not show any concerning ST segment changes. CXR did not show any acute cardiopulmonary changes. She does not report a cough or dyspnea. - PERC rule score 1 based on initial elevated HR at 113 bpm and Wells' criteria 1.5 points, which is low risk for PE - D-dimer elevated - Monitor on telemetry - Oxycodone as needed for pain, no indication for IV pain control without first failing oral. - Antibiotics as below - CTA PE PRotocol: suspicious for lung nodules per Dr Wilhelm -- Patient wanted to leave AMA on 626 is her car was stranded in front of a shop in [place] and she is anxious about not having her car. As she does not have a sitter/ guard she is free to go -- Stat echo report requested, still pending this am history of recurrent endocarditis, present on admission. - Echocardiogram in 04/2016 showed echo lucency around bio-prosthetic valve consistent with valve dehiscence associated with severe aortic regurgitation - Lactic acid within normal limits. SIRS criteria not met at time of admission. Procalcitonin mildly elevated at 0.13 on admission. - Blood cultures performed and pending - MRSA screen ordered - Infectious disease consulted in the ED. ID recommended starting vancomycin. His time and recommendations are appreciated. - Continue IV vancomycin dosed by pharmacy - Single ertapenem IV dose ordered today as a precaution, pending blood culture results. - Normal saline at 100 ml/hour - Echocardiogram is pending - Plan daily ESR - She indicates she will leave AGAINST MEDICAL ADVICE unless she receives IV pain medicine, but refuses Toradol. We will treat with oral pain medicine today -- Her blood cultures are so far negative it is not clear whether she really has an endocarditis, likley she has a porcine valve that is disintegrating. she has been afebrile. Severe Aortic Regurgitation -She will need to be treated and advance his center but may not be a candidate for another valve replacement -If she returns to ED, we will try to get her transferred to advance a center where she can be considered for a valve replacement Chronic heroin dependence, present on admission, active. - Reported last IV heroin use today to ED - Drug screen positive for methamphetamines and opiates. - Symptomatic care with Zofran as needed for nausea/vomiting - Oxycodone as needed for pain as above, no indication for IV morphine that she is requesting - Monitor blood pressure and if blood pressure stable, consider adding lorazepam for anxiety and/or clonidine for anxiety, hypertension, tachycardia - Social work referral placed -- There is a concern due to her request for her pain medications here that she will not get medications on the street. I discussed this with patient, she states that she will come back to the ED after she gets her case right upper arm abscess, present on admission. - US of right upper arm ordered, surgical consult requested. - Infectious disease consulted as above - Continue vancomycin Chronic tobacco dependence, present on admission, active. - Nicotine patch as needed for nicotine withdrawal Elevated creatine kinase, present on admission. - Likely related to above endocarditis and heroin use - CK 462 on admission, now down to 267 - IV normal saline as above CODE STATUS ; FULL CODE. Patient Status: Patient is continued under inpatient status with expected length of stay greater than 2 midnights due to severity of presenting symptoms, risk of adverse event, and complexity of treatment plan. Exam Vital Signs (Last) Date Time Temp Pulse Resp B/P Pulse Ox O2 Delivery O2 Flow Rate FiO2 11/16/16 10:46 67 11/16/16 09:45 36.6 20 110/55 100 Room Air Exam Skin: Scar on left neck, she has a healed Incision from IND and a right upper tricep area Heart 2+ to 3+ murmur most appreciable in the apex possibly radiation to neck Lungs: CTA, no crackles or wheezes MSK:mid back pain in the center Extremities without edema Vasc: pedal pulses are palpable Lungs are clear to auscultation Psych: mild anxiety Test 11/14/16 18:47 11/15/16 05:30 11/15/16 06:14 11/15/16 20:40 D-Dimer 2.03mg/L FEU (<0.50) Lactic Acid Level 1.0mmol/L (0.4-2.0) Magnesium Level 2.0mg/dL (1.6-2.6) Human Chorionic Gonadotropin, Qual 0.500 (Negative) Hold Owens Top Tube Received (Received) Urine Color Dark yellow (YELLOW) Urine Appearance Cloudy (CLEAR,HAZY) Urine pH 7.0 (5.0-8.0) Urine Specific [place] 1.025 (1.003-1.035) Urine Protein Tracemg/dL (NEG,TRACE) Urine Glucose (UA) Negativemg/dL (NEGATIVE) Urine Ketones Negativemg/dL (NEGATIVE) Urine Occult Blood Negative (NEGATIVE) Urine Nitrite Negative (NEGATIVE) Urine Bilirubin Negative (NEGATIVE) Urine Urobilinogen 2.0mg/dL (NORMAL) Urine Leukocyte Esterase Negative (NEGATIVE) Urine RBC 0-2/hpf (0-2) Urine WBC 6-10/hpf (0-5) Urine Epithelial Cells Many/hpf (NONE-MOD) Urine Crystals None seen (NONE SEEN) Urine Bacteria Moderate/hpf (NONE-FEW) Urine Hyaline Casts None/lpf (NONE) Urine Granular Casts None seen (NONE SEEN) Urine Waxy Casts None seen (NONE SEEN) Urine Red Blood Cell Casts None seen (NONE SEEN) Urine White Blood Cell Casts None seen (NONE SEEN) Urine Mucus Present (None Seen) Urine Trichomonas None seen (NONE SEEN) Urine Yeast None (NONE SEEN) Urinalysis Comment None Urine Culture Reflexed Indicated Urine Opiates Screen Positive Urine Methadone Screen Negative Urine Barbiturates Screen Negative Urine Amphetamines Screen Positive Urine Benzodiazepines Screen Negative Urine Cocaine Metabolite Screen Negative Urine Cannabinoids Screen Negative Neutrophils (%) (Auto) 52.9% (40-74) Lymphocytes (%) (Auto) 34.9% (14-46) Monocytes (%) (Auto) 8.0% (4-12) Eosinophils (%) (Auto) 3.7% (0-5) Basophils (%) (Auto) 0.3% (0-3) Sodium Level 140mEq/L (134-144) Potassium Level 4.5mEq/L (3.5-5.2) Chloride Level 108mEq/L (97-108) Carbon Dioxide Level 19mmol/L (18-29) Blood Urea Nitrogen 21mg/dL (6-20) Creatinine 0.67mg/dL (0.57-1.00) Estimat Glomerular Filtration Rate 144mL/min (>59) Glucose Level 112mg/dL (60-99) Calcium Level 8.5mg/dL (8.5-10.1) Total Bilirubin 0.3mg/dL (0.0-1.2) Aspartate Amino Transf (AST/SGOT) 17U/L (0-50) Alanine Aminotransferase (ALT/SGPT) 9U/L (0-32) Alkaline Phosphatase 59U/L (25-150) Total Creatine Kinase 267U/L (21-215) Troponin T 0.010ug/L (0.0-0.011) Total Protein 6.4g/dL (6.4-8.4) Albumin 3.0g/dL (3.4-5.0) Procalcitonin 0.12ng/mL (0.00-0.08) HCG Beta Subunit < 0.500mIU/mL Vancomycin Level Trough 12.3mcg/mL Test 11/16/16 06:15 White Blood Count 7.2th/mm3 (3.8-10.1) Red Blood Count 3.47mil/mm3 (3.90-5.20) Hemoglobin 10.0g/dL (12.0-15.6) Hematocrit 32.0% (35.0-46.0) Mean Corpuscular Volume 92.2fL (81-100) Mean Corpuscular Hemoglobin 28.8pg (27.0-35.0) Mean Corpuscular Hemoglobin Concent 31.3% (32.0-37.0) Red Cell Distribution Width 13.3% (12.3-15.4) Platelet Count 263bil/L (150-400) Erythrocyte Sedimentation Rate 31mm/hr (0-32) C-Reactive Protein 0.5mg/dL (0.0-0.5) Discharge Medications Discharge Medications Linezolid (Linezolid) 600 Mg Tablet 600 MG PO BID Prescribed by: ANGELIQUE JIMENEZ DO Followup Plan Discharge Diet: No restrictions Discharge Activity: No restrictions Patient Instructions We feel that you should remain in the hospital until we can give you a plan for your valve follow up. We can no prescribe pain meds as youa re leaving AMA Follow-up with PCP in: 1 week Time spent 40 min Angelique Jimenez DO Nov 16, 2016 14:09
== END 2016-11-16 14:14 | disposition left against medical advice (07) | DRG 307 ==
LOC: SED 17:36 → OBSVTOIN 21:02 → MPC 21:02
PROVIDERS: ADMIT Family Medicine; ATTEND Family Medicine
DX: T82.01XA Breakdown (mechanical) of heart valve prosthesis, initial encounter (principal); F11.20 Opioid dependence, uncomplicated; L02.413 Cutaneous abscess of right upper limb; F17.210 Nicotine dependence, cigarettes, uncomplicated; F15.90 Other stimulant use, unspecified, uncomplicated

== ENCOUNTER 2016-11-16 20:44 | Inpatient (IN) | payer OTHER, MEDICAID ==
[~2016-11-16] VITALS: Ht 165.1 cm; Wt 76.1 kg
[2016-11-16 20:48] VITALS: BP 161/73; PULSE 77; RESP 18; O2SAT 99
--- NOTE | 2016-11-16 21:25 | ED.REPORT ---
HPI-Chest Pain Under 40 Date of Service Nov 16, 2016 ED Provider: Devon Turcios MD Pt is a 36 y/o female w/ a hx of IV drug abuse causing recurrent endocarditis, severe aortic regurgitation s/p bioprosthetic aortic valve replacement, Hep C, presenting to the ED c/o chest and back pain onset intermittently chronically, worse for 2 days. She is not experiencing CP at current time but did earlier today. The patient was admitted 2 days ago for chest pain and was undergoing treatment for endocarditis when she decided to leave [place] because she "had to move her truck". She is returning to continue her treatment. Echocardiogram performed earlier today interpreted as below: Interpretation Summary The ejection fraction is estimated to be 60-65%. There is a bioprosthetic aortic valve. Valve leaflets are thickenend, particularly the RCC, There is an echo free space oround the valve which could repesent perivalvular abscess.A MADHAV is recommended. There is severe aortic regurgitation. There is moderate holodiastolic flow reversal in the descending thoracic aorta. There is moderate holodiastolic flow reversal in the proximal abdominal aorta. There is mild tricuspid regurgitation. The right ventricular systolic pressure is estimated at 38 mmHg assuming a right atrial pressure of 15 mm Hg. Nursing Notes Stated Complaint: CHEST PAIN Chief Complaint: Chest Pain Nursing Notes Reviewed: Yes Allergies: Coded Allergies: No Known Allergies (Verified , 11/16/16) No Active Prescriptions or Reported Meds General Time Seen by MD: 21:21 Chief Complaint Chest pain Hx Obtained From: Patient Arrived By: Walk-in Sudden in Onset?: No Onset Occurred: 2 days ago Symptom Duration: Intermittent Location: : Substernal Quality: Painful Radiation: : Back Severity: Current: No pain currently Severity: Maximum: Severe Recent Healthcare: Recent doctor visit, Recent hospitalization, Recent testing , Previous diagnosis, Prior workup Similar Sx Previous: Yes Past Medical History Past Medical History Notes: History of leaving [place] History of bacterial endocarditis with subsequent prosthetic valve and endocarditis of prosthetic valve and valve replacement at [facility] in /March of this year. Consistently noncompliant with medical care and examined Past Medical History 1. 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 Heroin dependency. IV drug abuse with heroin and methamphetamine use. 3. Cigarette smoker with nicotine addiction. 4. Irregular menses. 5. C. difficile colitis treated July 2011. 6. Hep C Past Surgical History x3 cholecystectomy bioprosthetic aortic valve placement August 11, 2011 admit L arm abscess surgery October 2014 Gallbladder Tonsills Family History noncontributory Smoking History Current Every Day Smoker Social History Alcohol Use: Denies alcohol use Drug Use: IV drugs, Meth, THC, Other Other Social History: Poor social support, Local resident Ambulatory Status Independent Review of Systems Cardiovascular: Reports: Chest pain Musculoskeletal: Reports: Back pain Complete sys rev & neg: except as marked. Physical Exam Initial Vital Signs Vital Signs (First) Date Time Temp Pulse Resp B/P Pulse Ox O2 Delivery O2 Flow Rate FiO2 11/16/16 20:48 36 77 18 161/73 99 Initial VS: Reviewed, Vital signs abnormal Head / Eyes: Atraumatic, Normocephalic, PERRL ENT: Mucous membranes moist, Conjunctiva normal, No scleral icterus Neck: Supple, Full range of motion Abdomen / GI: Soft, Non-tender, No guarding, No rebound, No distention Extremities: Vascular intact, Neuro intact, No swelling Skin: Warm, Dry, No cyanosis Neurologic: Alert, Oriented, Nonfocal Psychiatric: Mood/affect normal, Behavior normal, Normal thought content General/Constitutional: Awake, Alert, No acute distress, Cooperative, Not toxic appearing Respiratory / Chest: Breath sounds NL, Breath sounds = bilat, No respiratory distress, No rales, No rhonchi, No wheezing Cardiovascular: Heart rate NL, Regular rhythm, Cap refill not delayed, Peripheral circulation NL Harsh holosystolic murmur left upper sternal border Interpretation & Diagnostics Lab Results Interpretation Result Diagram: 11/16/16222911/16/162229 Test 11/16/16 22:30 White Blood Count 9.0th/mm3 (3.8-10.1) Red Blood Count 3.43mil/mm3 (3.90-5.20) Hemoglobin 10.1g/dL (12.0-15.6) Hematocrit 30.9% (35.0-46.0) Mean Corpuscular Volume 90.1fL (81-100) Mean Corpuscular Hemoglobin 29.4pg (27.0-35.0) Mean Corpuscular Hemoglobin Concent 32.7% (32.0-37.0) Red Cell Distribution Width 13.3% (12.3-15.4) Platelet Count 277bil/L (150-400) Neutrophils (%) (Auto) 45.6% (40-74) Lymphocytes (%) (Auto) 44.1% (14-46) Monocytes (%) (Auto) 7.1% (4-12) Eosinophils (%) (Auto) 2.7% (0-5) Basophils (%) (Auto) 0.3% (0-3) Sodium Level 138mEq/L (134-144) Potassium Level 3.9mEq/L (3.5-5.2) Chloride Level 106mEq/L (97-108) Carbon Dioxide Level 20mmol/L (18-29) Blood Urea Nitrogen 18mg/dL (6-20) Creatinine 0.75mg/dL (0.57-1.00) Estimat Glomerular Filtration Rate 127mL/min (>59) Glucose Level 113mg/dL (60-99) Calcium Level 8.3mg/dL (8.5-10.1) Magnesium Level 1.9mg/dL (1.6-2.6) Total Bilirubin 0.3mg/dL (0.0-1.2) Aspartate Amino Transf (AST/SGOT) 15U/L (0-50) Alanine Aminotransferase (ALT/SGPT) 10U/L (0-32) Alkaline Phosphatase 58U/L (25-150) Troponin T < 0.010ug/L (0.0-0.011) Total Protein 7.0g/dL (6.4-8.4) Albumin 3.4g/dL (3.4-5.0) Hold Owens Top Tube Received (Received) ECG Interpretation Time: 21:48 Interpreted by: ED physician Normal ECG Interpretation: Normal ECG w/ rate of... (68), Normal rate, Normal sinus rhythm, No acute ischemic changes, Normal QRS, Normal axis, Normal intervals, No change from prior ECGs, Adequate tracing X-Ray Chest Interpretation View: Portable, 1 view Interpretation / Wet Read by: Wet read ED physician NL X-Ray Chest Findings: No infiltrate, No acute disease Re-Eval/Medical Decision Med Decision/Clinical Course 36-year-old female history of endocarditis, bioprosthetic valve presenting with chest pain. Patient had been admitted several days ago and left AMA today reportedly to move her car. Her blood cultures had been negative though she had been admitted for presumed endocarditis. I discussed with infectious disease who recommends readmitting her with plans for MADHAV. Ertapenem was started given earlier today. Blood cultures sent. Re-Evaluation/Progress : Time of Eval: 21:55 Re-Evaluation/Progress Note: Pt rechecked. Informed pt of need for admission. Pt understands and agrees with plan for admission. All questions addressed. Consultation #1: Referral / Consult Name: Geoff Truong MD Call Returned at: 21:55 Commercial Ocean Clammer: Agrees with eval, Agrees with plan Note: Infectious disease would like for us to admit here. Consultation #2: Referral / Consult Name: Yesenia Noyola DO Consulted With: Hospitalist Call Returned at: 22:13 [employer] Clammer: Will see patient, Agrees with eval, Agrees with plan, Accepts admit Counseled Regarding: Diagnosis, Lab results, Need for admission Discharge & Departure Primary Impression: Bacterial endocarditis Chronicity: acute Qualified Code: I33.0 - Acute and subacute infective endocarditis Disposition: ADMITTED TO HOSPITAL Discharge Condition All VS Reviewed: Yes Condition: Stable Referrals: Yuliana Smith MD (PCP) Scribe Attestation Portions of this note were transcribed by Vincent Mondragon. I, Dr. Turcios, personally performed the history, physical exam and medical decision-making; I reviewed and confirmed the accuracy of the information in the transcribed note. Signed by Domo Solis, 11/16/162129 copies to: Yuliana Smith MD, Ben M MD Nov 16, 2016 21:25 VINCENT MONDRAGON Nov 16, 2016 21:34
--- NOTE | 2016-11-16 22:15 | PCM.PNMED ---
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 Definitive tx is to get a MADHAV and get her valve replaced. She got an echo this AM, not read yet. She is worried about a card she left infront of a Exam Vital Signs Vital Sign - Last Date Time Temp Pulse Resp B/P Pulse Ox O2 Delivery O2 Flow Rate FiO2 11/16/16 20:48 36 77 18 161/73 99 Exam Exam She is alert and oriented 3 and appears to be in moderate distress from withdrawal type diaphoresis/anxiety. Heart is regular rate and rhythm with loud systolic and diastolic murmurs, both. Lungs are clear to auscultation bilaterally There is no ankle edema There is a small incision over a small residual abscess of the right biceps area with some purulent discharge noted. Assessment & Plan As per progress note prior to leaving AMA and returning 3 hours later Ms. Diana Hair is a 36 year old woman with history of bacterial and fungal endocarditis, bio-prosthetic aortic valve replacement, and IV drug use who presented to the emergency department for retrosternal chest pain. Chest pain, acute, present on admission, active. - Likely secondary to probable recurrent endocarditis. Differential diagnosis includes but not limited to: endocarditis given IV drug use with history of bacterial and fungal endocarditis with a bio-prosthetic valve, acute coronary syndrome, pneumonia, pneumothorax, or pulmonary embolism - Initial troponin negative and EKG did not show any concerning ST segment changes. CXR did not show any acute cardiopulmonary changes. She does not report a cough or dyspnea. - PERC rule score 1 based on initial elevated HR at 113 bpm and Wells' criteria 1.5 points, which is low risk for PE - D-dimer elevated - Monitor on telemetry - Oxycodone as needed for pain, no indication for IV pain control without first failing oral. - Antibiotics as below - CTA PE PRotocol: suspicious for lung nodules per Dr Wilhelm history of recurrent endocarditis, present on admission. - Echocardiogram in 04/2016 showed echo lucency around bio-prosthetic valve consistent with valve dehiscence associated with severe aortic regurgitation - Lactic acid within normal limits. SIRS criteria not met at time of admission. Procalcitonin mildly elevated at 0.13 on admission. - Blood cultures performed and pending - MRSA screen ordered - Infectious disease consulted in the ED. ID recommended starting vancomycin. His time and recommendations are appreciated. - Continue IV vancomycin dosed by pharmacy - Single ertapenem IV dose ordered today as a precaution, pending blood culture results. - Normal saline at 100 ml/hour - Echocardiogram is pending - Plan daily ESR - She indicates she will leave AGAINST MEDICAL ADVICE unless she receives IV pain medicine, but refuses Toradol. We will treat with oral pain medicine today Severe Aortic Regurgitation - She appears to be hospice appropriate, pending echocardiogram confirmation. Surgery is probably not even an actual possibility, due to the severity of the condition, her recurrent drug use and her general attitude. Chronic heroin dependence, present on admission, active. - Reported last IV heroin use today to ED - Drug screen positive for methamphetamines and opiates. - Symptomatic care with Zofran as needed for nausea/vomiting - Oxycodone as needed for pain as above, no indication for IV morphine that she is requesting - Monitor blood pressure and if blood pressure stable, consider adding lorazepam for anxiety and/or clonidine for anxiety, hypertension, tachycardia - Social work referral placed right upper arm abscess, present on admission. - US of right upper arm ordered, surgical consult requested. - Infectious disease consulted as above - Continue vancomycin, with additional ertapenem today. Chronic tobacco dependence, present on admission, active. - Nicotine patch as needed for nicotine withdrawal Elevated creatine kinase, present on admission. - Likely related to above endocarditis and heroin use - CK 462 on admission, now down to 267 - IV normal saline as above CODE STATUS ; FULL CODE. Patient Status: Patient is continued under inpatient status with expected length of stay greater than 2 midnights due to severity of presenting symptoms, risk of adverse event, and complexity of treatment plan. VTE Prophylaxis: Sub-Q Heparin (Unfractionated) Resuscitation Status: CPR: Attempt Resuscitation Pain Evaluation: Adequate Pain Control GI Prophylaxis: Proton Pump Inhibitor VTE Prophylaxis: Sub-Q Heparin (Unfractionated) Resuscitation Status: CPR: Attempt Resuscitation Yesenia Noyola DO Nov 16, 2016 22:15
[2016-11-16] MEDS ORDERED: Polyethylene Glycol (PEG) 17 Gm Powder PO PRN (22:20)
[2016-11-16] MEDS ORDERED: Alum-Mag Hydrox-Simeth 30 mL Suspension PO PRN (22:20)
[2016-11-16] MEDS ORDERED: Ondansetron 2 mg/mL 2 mL Inj IVPUSH PRN (22:20)
[2016-11-16] MEDS ORDERED: Vancomycin Inj 1,500 MG in 0.9% Sodium Chloride 500 ML IV ONE (22:30)
[2016-11-16] MEDS ORDERED: Vancomycin 1 Gm/200 mL NS Premix IV ONE (22:35)
[2016-11-16] MEDS: 0.9% Sodium Chloride 1,000 ML IV SCH (22:37)
[2016-11-16 22:45] LABS: BASOPHILS % (AUTO) 0.3 % (0-3); EOSINOPHILS % (AUTO) 2.7 % (0-5); MONOCYTES % (AUTO) 7.1 % (4-12); Mean Corpuscular Hemoglobin 29.4 pg (27.0-35.0); Mean Corpuscular Volume 90.1 fL (81-100); NEUTROPHILS % (AUTO) 45.6 % (40-74); Platelet Count 277 bil/L (150-400)
[2016-11-16 23:11] LABS: Magnesium 1.9 mg/dL (1.6-2.6)
[2016-11-16 23:26] LABS: TROPONIN T < 0.010 ug/L (0.0-0.011)
--- NOTE | 2016-11-16 23:47 | PCM.PHAPRO ---
Progress Date of Service: Nov 16, 2016 Vancomycin Management per Pharmacy: Indication: Rule Out Endocarditis, in a patient with recurrent endocarditis and chest pain Goal Trough: 15-20 mg/dL Age: 36 yo Weight: 70.4 kg Labs: WBC: 9.0 SrCr: 0.75 mg/dL Est CrCl: ~115 mL/min Micro: No growth form 3 blood cultures to date, history of MSSA endocarditis Vancomycin trough: 12.3 mg/dL on 750 mg IV Q8h today Recommendation: Increase to vancomycin 1000 mg IV Q8h Trough: Will draw trough on 11/19/16 @ 0730 Pharmacy to continue to monitor and adjust vancomycin as needed. Thank You, Nessa Pizarro, Pharm D. Nessa Pizarro Nov 16, 2016 23:47
[2016-11-17] VITALS (9 sets, daily range): BP systolic 103–122; BP diastolic 42–64; PULSE 66–83; RESP 17–20; O2SAT 96–99
[2016-11-17] MEDS: Vancomycin Dose per Pharmacist XX SCH ×2 (00:07→08:30)
[2016-11-17] MEDS: Heparin 5,000 Unit/mL Inj SUBQ SCH ×3 (00:20→16:55)
--- NOTE | 2016-11-17 00:53 | NUR ---
Admit note: Pt re-admitted 11/16/16 after leaving AMA earlier in the day. Aware of pain meds available, not requesting any at this time. Denies using any drugs while away from the hospital. Was medicated for nausea, is NPO for tentative MADHAV ordered for later today. When pt was told about NPO status and the MADHAV ordered, pt's response was "good". Pt cooperative when talking with staff. With RN still in room, pt appears to be having a conversation with herself, half in Kazakh and half in Fijian. With RN listening to the Kazakh part of the conversation, pt was stating "I'm fucking eating, your bringing me fucking food" "Just keep it cool" "Don't do something crazy like that". After lights were turned down, pt able to close eyes and rest quietly. Pt's car keys and bag of clothing in closet. Instructed to use call light for needs.
[2016-11-17] MEDS: Vancomycin 1 Gm/200 mL NS Premix IV SCH ×2 (08:26→16:54)
--- NOTE | 2016-11-17 10:37 | DRSVH ---
PROCEDURE: X-RAY CHEST ONE VIEW, PORTABLE ([id number]) INDICATIONS: chest pain TECHNIQUE: One view of the chest was acquired. COMPARISON: [facility], CR, XR CHEST 1VW (PORTABLE), 11/14/2016, 18:00. FINDINGS: Surgical changes and devices: Median sternotomy wires. Lungs and pleura: No pleural effusions or pneumothorax. Lungs are clear. Mediastinum: Mediastinal contours appear normal. Heart size is normal. Bones and chest wall: No suspicious bony lesions. Overlying soft tissues appear unremarkable. IMPRESSION: No acute cardiopulmonary disease. Dictated by: Cirilo Garcia [facility] Interpreted: Anthony Hooker MD on 11/17/2016 at 8:29 Approved by: Anthony Hooker M.D. on 11/17/2016 at 10:35
[2016-11-17] MEDS: LORazepam 0.5 mg Tablet PO PRN ×2 (11:48→22:41)
--- NOTE | 2016-11-17 12:55 | NUR ---
off unit pt was brought down to [facility] for MADHAV. no s/s of distress
--- NOTE | 2016-11-17 13:30 | NUR ---
RECEIVED FROM [facility] FOR MADHAV WITH ANESTHESIA.
--- NOTE | 2016-11-17 14:05 | NUR ---
Social Work-screening: data:EMR reviewed. Pt is a 36 y/o female who was admitted on 11/16/4173 for chest pain per H&P. Pt's insurance is [facility] Blind/disabled and PCP is Yuliana Smith Md. EMR Reviewed. Pt's readmission score is 5. Pt just left AMA yesterday. Pt has history of drug use. SW to await MD order for CD assessment. Pt to return home when medically stable. SW will continue to follow. Assessment:Pt who is independent at baseline. Plan:Pt to discharge home when medically stable. SW to await CD order from MD. SW will continue to follow. [facility] Davila
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
[2016-11-17] MEDS ORDERED: Lactated Ringer's 1,000 ML IV ONE (14:15)
--- NOTE | 2016-11-17 14:30 | NUR ---
CASE CANCELLED. RETURNED TO [facility] [place], REPORT GIVEN. IV REMOVED INTACT
--- NOTE | 2016-11-17 15:40 | NUR ---
No IV access Pt has no IV access. aware.
--- NOTE | 2016-11-17 16:32 | NUR ---
unsuccessful IV placement called to [facility] to start new IV on patient for MADHAV procedure. 2 attempts made , unsuccessful. Anesthesia was able to access an ext. jugular vein but then patient became agitated screaming to take it out and yelling at 2 senior IV nurses that she just needed someone that knew what they were doing. Pt requesting to go back to her room without IV access or completed procedure. Dr Redding aware.
--- NOTE | 2016-11-17 17:54 | NUR ---
left arm redness/possible abscess Pt has red warm area with a hard mass in center that was not visible this am. Pt returned from an attempted MADAHV and area was notice shortly after return to unit. Area was outlined and MD notified. 11.5cm long by 9.0cm wide.
[2016-11-17] MEDS: 0.9% Sodium Chloride 1,000 ML IV SCH (19:41)
--- NOTE | 2016-11-17 23:04 | PCM.PNMED ---
Subjective Date of Service Nov 17, 2016 Subjective Patient has returned after taking care of her car parking issue last night. Got readmitted via ED. No particualr compliants. she had a rough time when they tried a new IV prior to attempting a MADHAV. Staff were unable to put an IV in. Exam Vital Signs Vital Sign - Last Date Time Temp Pulse Resp B/P Pulse Ox O2 Delivery O2 Flow Rate FiO2 11/17/16 20:00 83 11/17/16 19:51 37.2 18 114/58 96 Room Air Intake and Output 11/16/16 11/16/16 11/17/16 Cumulative From/Thru 15:00 23:00 07:00 11/16/16 20:48 - 11/17/16 06:47 Intake Total 473 ml 473 ml Output Total 1000 ml 1000 ml Balance -527 ml -527 ml Intake Oral 0 ml 0 ml IV Total 473 ml 473 ml Output Urine Total 1000 ml 1000 ml Exam She is alert and oriented 3 and appears to be in no distress Heart is regular rate and rhythm with loud systolic and diastolic murmurs, both. Lungs are clear to auscultation bilaterally Ext: There is no ankle edema Skin: There is a small incision over a small residual abscess of the right biceps area, there is also a new large abscess found over the left triep area Psych: Neg for anxiety, agitation Neuro: No focal deficits IVs and Medications IV Fluids None Medications Reviewed: Medications were reviewed in detail Lab and Diagnostics Result Diagram: 11/16/16222911/16/162229 X-Rays, CTs and MRIs [facility] Diagnostic Imaging Department [place], [place] [id number] Patient Name: DIANA HAIR MR#: [id number] Location: [facility] [place] [facility] Ordering Phys: Devon Turcios MD Date of Service: 11/16/162129 PROCEDURE: X-RAY CHEST ONE VIEW, PORTABLE ([id number]) INDICATIONS: chest pain TECHNIQUE: One view of the chest was acquired. COMPARISON: [facility], CR, XR CHEST 1VW (PORTABLE), 11/14/2016, 18: 00. FINDINGS: Surgical changes and devices: Median sternotomy wires. Lungs and pleura: No pleural effusions or pneumothorax. Lungs are clear. Mediastinum: Mediastinal contours appear normal. Heart size is normal. Bones and chest wall: No suspicious bony lesions. Overlying soft tissues appear unremarkable. IMPRESSION: No acute cardiopulmonary disease. Dictated by: Cirilo Garcia [facility] Interpreted: Anthony Hooker MD on 11/17/2016 at 8: 29 Approved by: Anthony Hooker M.D. on 11/17/2016 at 10:35 Assessment & Plan As per progress note prior to leaving AMA and returning 3 hours later Ms. Diana Hair is a 36 year old woman with history of bacterial and fungal endocarditis, bio-prosthetic aortic valve replacement, and IV drug use who presented to the emergency department for retrosternal chest pain. history of recurrent endocarditis, present on admission. - Echocardiogram in 04/2016 showed echo lucency around bio-prosthetic valve consistent with valve dehiscence associated with severe aortic regurgitation - Lactic acid within normal limits. SIRS criteria not met at time of admission. Procalcitonin mildly elevated at 0.13 on admission. - Blood cultures performed and pending - MRSA screen ordered - Infectious disease consulted in the ED. ID recommended starting vancomycin. His time and recommendations are appreciated. - Continue IV vancomycin dosed by pharmacy - Single ertapenem IV dose ordered today as a precaution, pending blood culture results. - Normal saline at 100 ml/hour - Plan daily ESR - She indicated she will leave AGAINST MEDICAL ADVICE unless she receives IV pain medicine, but refused Toradol during prior admit. We will treat with oral pain medicine --MADHAV was unsuccessul as staff could not place an IV -- Discuss Vanc dosing with Dr. Truong -- Will attempt transfer to advanced care facility in the AM Chest pain, acute, present on prior admission, resolved - Likely secondary to probable recurrent endocarditis. Differential diagnosis includes but not limited to: endocarditis given IV drug use with history of bacterial and fungal endocarditis with a bio-prosthetic valve, acute coronary syndrome, pneumonia, pneumothorax, or pulmonary embolism - Initial troponin negative and EKG did not show any concerning ST segment changes. CXR did not show any acute cardiopulmonary changes. She does not report a cough or dyspnea. - PERC rule score 1 based on initial elevated HR at 113 bpm and Wells' criteria 1.5 points, which is low risk for PE - D-dimer elevated - Monitor on telemetry - Oxycodone as needed for pain, no indication for IV pain control without first failing oral. - Antibiotics as below - CTA PE PRotocol: suspicious for lung nodules per Dr Wilhelm Severe Aortic Regurgitation - She appears to be hospice appropriate, pending echocardiogram confirmation. Surgery is probably not even an actual possibility, due to the severity of the condition, her recurrent drug use and her general attitude. Chronic heroin dependence, present on admission, active. - Reported last IV heroin use today to ED - Drug screen positive for methamphetamines and opiates. - Symptomatic care with Zofran as needed for nausea/vomiting - Oxycodone as needed for pain as above, no indication for IV morphine that she is requesting - Monitor blood pressure and if blood pressure stable, consider adding lorazepam for anxiety and/or clonidine for anxiety, hypertension, tachycardia - Social work referral placed right upper arm abscess, present on admission. - US of right upper arm ordered, surgical consult requested. - Infectious disease consulted as above - Vancomycin per ID left upper arm abscess, present on admission. - US of right upper arm ordered, surgical consult requested. - Infectious disease consulted as above - Vancomycin per ID Chronic tobacco dependence, present on admission, active. - Nicotine patch as needed for nicotine withdrawal Elevated creatine kinase, present on admission. - Likely related to above endocarditis and heroin use - CK 462 on admission, now down to 267 - IV normal saline as above CODE STATUS ; FULL CODE. Patient Status: Patient is continued under inpatient status with expected length of stay greater than 2 midnights due to severity of presenting symptoms, risk of adverse event, and complexity of treatment plan. VTE Prophylaxis: Sub-Q Heparin (Unfractionated) Resuscitation Status: CPR: Attempt Resuscitation GI Prophylaxis: Proton Pump Inhibitor VTE Prophylaxis: Sub-Q Heparin (Unfractionated) Resuscitation Status: CPR: Attempt Resuscitation Time spent 25 min Angelique Redding DO Nov 17, 2016 23:04
[2016-11-18] MEDS: Vancomycin 1 Gm/200 mL NS Premix IV SCH ×2 (00:30→10:16)
[2016-11-18] MEDS: Sodium Chloride LOK Flush 10 mL Syringe IVFLUSH SCH ×4 (00:30→21:32)
[2016-11-18 00:40] VITALS: BP 118/64; PULSE 78; RESP 18; O2SAT 97
[2016-11-18] MEDS: Heparin 5,000 Unit/mL Inj SUBQ SCH ×3 (01:19→17:01)
[2016-11-18] MEDS ORDERED: Lactated Ringer's 1,000 ML IV ONE (06:00)
--- NOTE | 2016-11-18 06:21 | NUR ---
Pain: Pt medicated x2 with oxycodone this shift for pain, at HS and this morning. Reported a headache in the middle of the night, OT Tylenol order was received. Pt was able to sleep most of the night. Has been pleasant and cooperative with care tonight, did refuse the last set of vital signs this morning due to being in too much pain. No IV access, MD aware.
[2016-11-18 07:36] LABS: Mean Corpuscular Hemoglobin 28.8 pg (27.0-35.0); Mean Corpuscular Volume 90.5 fL (81-100)
[2016-11-18] MEDS: Vancomycin Dose per Pharmacist XX SCH (08:14)
--- NOTE | 2016-11-18 10:02 | NUR ---
IV access Pt currently with no IV access. No IV ABO's able to be given at this time. aware.
--- NOTE | 2016-11-18 10:14 | NUR ---
Social Work-continued d/c planning: Data:EMR Reviewed. Pt is on day 2 of hospitalization for chest pain. MD working on arranging transfer to higher level of care for cardiac procedure. If pt does not transfer, SW to await MD order for CD assessment, if indicated. SW will continue to follow. Assessment:Pt who will likely transfer. Plan:Anticipate pt to transfer to higher level of care. If pt does not transfer, SW to await MD order for CD assessment, if indicated. SW will continue to follow. WES Davila
[2016-11-18] MEDS: LORazepam 0.5 mg Tablet PO PRN ×2 (10:20→23:27)
[2016-11-18 13:13] VITALS: PULSE 73
[2016-11-18 13:53] VITALS: BP 104/51; PULSE 71; RESP 18; O2SAT 97
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
--- NOTE | 2016-11-18 15:46 | NUR ---
Nausea Pt req PRN antiemetic, only available is IV. MD shepardpastephanie for SL order.
--- NOTE | 2016-11-18 16:32 | DRSVH ---
PROCEDURE: US EXTREMITY SONOGRAM LIMITED ([id number]) INDICATIONS: pl scan the left lateral and posterior tricep area TECHNIQUE: Real-time scanning was performed of the left arm, with image documentation. COMPARISON: [facility], US EXTREMITY LTD, 11/16/2016, 7:38. FINDINGS: Within the subcutaneous tissues of the left arm in the region of pain there is a avascular complex multiloculated fluid collection measuring roughly 4.4 x 1.2 x 4.2 cm. The collection is not drainable given the complexity. Within the left triceps region in the area of bruising there is a so litary echogenic soft tissue mass measuring roughly 1.6 x 1.6 x 1.6 cm with central sonolucency. No vascularity. IMPRESSION: 1. Complex fluid collection within the left lateral upper arm as above which could represent evolving hematoma or underlying abscess. No drainable fluid collection is seen. 2. Solid soft tissue mass within the left posterior arm. Findings are nonspecific and differential d iagnosis would include both benign and malignant etiologies. If indicated soft tissue MRI could be p erformed. Dictated by: Cirilo CHENEY Interpreted: Anthony Hooker MD on 11/18/2016 at 16:21 Approved by: Anthony Hooker M.D. on 11/18/2016 at 16:27
[2016-11-18] MEDS: 0.9% Sodium Chloride 1,000 ML IV SCH (17:31)
[2016-11-18 17:42] VITALS: BP 110/55; PULSE 78; RESP 18; O2SAT 98
--- NOTE | 2016-11-18 18:11 | NUR ---
Activity Pt amb to BR with no c/o dizziness, tolerating activity well. Pain managed via PO analgesics. Bed in lowest, locked position and call light in reach.
--- NOTE | 2016-11-18 19:41 | NUR ---
Telemetry put on standby by security monitor after patient refused to wear post shower. Educated on telemetry benefits, however patient indicates she is feeling fine and its too bulky and harmful to her skin.
[2016-11-18 19:54] VITALS: BP 130/66; PULSE 67; RESP 18; O2SAT 97
[2016-11-19] MEDS: Heparin 5,000 Unit/mL Inj SUBQ SCH ×3 (03:05→16:30)
[2016-11-19 03:49] VITALS: PULSE 65
[2016-11-19 05:07] VITALS: BP 108/63; PULSE 66; RESP 18; O2SAT 98
[2016-11-19] MEDS ORDERED: Vancomycin Serum Trough XX ONE (07:30)
[2016-11-19] MEDS: Sodium Chloride LOK Flush 10 mL Syringe IVFLUSH SCH ×2 (08:02→16:30)
--- NOTE | 2016-11-19 11:39 | PROG NOTE ---
[address] [address] PROGRESS NOTE PATIENT: AAYUSH SANCHEZ : 1980 MR#: [id number] ADMIT: 11/16/2016 JOB ID: [id number] DATE: 11/19/2016 REASON FOR FOLLOWUP: Deteriorating bioprosthetic aortic valve in a patient with IV drug use. INTERVAL HISTORY: The patient is in an agitated mood today. I was attempting to evaluate her cardiac situation as well as her arm abscesses. The patient became enraged basically and said to get out of her room. She had a number of negative things to say about our hospital as well as me personally and requests that I never see here again. PHYSICAL EXAMINATION: Reveals an angry young woman temperature 36.7, pulse 66, respiratory rate 18, blood pressure 108/63. She is saturating well on room air. Does not appear to be in respiratory difficulty. Left deltoid area has an area that is perhaps mildly erythematous.. No purulence or notable tenderness is present there. The patient did not allow anymore exam and threw me out of her room. LABORATORIES: Include white count 8400, platelet count stable at 228,000. Creatinine is 0.99. Albumin 3.1. Blood cultures are negative from this admission. Recall she had signed out AMA and came back last week and the blood cultures from that admission are negative so we have 10 negative blood cultures. The transthoracic echo was reviewed and discussed with Dr. Redding and shows what appears to be loosening and /or abscess around the bioprosthetic aortic valve. ASSESSMENT: This case discussed in detail with Dr. Redding. The patient no longer has any IV access, and I am not certain that she requires any additional intravenous therapy as we have no evidence of endocarditis at this point, based upon 10 negative blood cultures obtained prior to antibiotics. The patient's valve is a bioprosthetic valve that is definitely failing at least evidenced by her loud holosystolic and diastolic murmurs as well as the transthoracic echo picture. Dr. Redding has spoken to people at [facility] and [facility] in the last 24 hours about possible transfer for cardiac surgery evaluation. Apparently [facility] has declined and the [facility] is considering it. The left arm abscess is of uncertain microbial etiology and it would not be unreasonable to treat the patient with an oral antibiotic such as doxycycline or linezolid for one week as she is stating she will leave the hospital today, but I will leave this to the discretion of the hospitalist.If she were to stay it might need aspirtion or drainage RECOMMENDATIONS: 1. No additional IV antibiotics or blood cultures are needed at this time. 2. Doxycycline 100 b.i.d. or linezolid 600 b.i.d. for a week might be reasonable therapy for the left deltoid abscess. 3. I am signing off this case. [facility]
[2016-11-19] MEDS ORDERED: LINE600T7 PO (12:21)
[2016-11-19 15:40] VITALS: BP 105/64; PULSE 68; RESP 18; O2SAT 96
--- NOTE | 2016-11-19 15:50 | NUR ---
Palliative care note D/A: Palliative care note received from Dr. Redding today for assistance with goals of care. Note that medical team is trying to arrange for transfer to , which has been declined. Possible outreach to [facility]. Palliative care team is awaiting further information from medical team prior to consideration of consult. Palliative care to follow. Pt is 36 year old female with extended history of IVDA as well as other means of delivery of controlled substances. Note that pt has had a history of CPS, per IMMIGRATION MANAGER note in 2014. Pt currently living in the [place] area. Past notes indicate presence of pt mother but it appears that her name and contact numbers have been taken out of the EMR. Pt family member is listed as her grandmother Faye Vera and she can be reached at [phone]. P: Palliative care to follow. Deb FERNANDEZ, [facility]
[2016-11-19] MEDS: 0.9% Sodium Chloride 1,000 ML IV SCH (16:40)
--- NOTE | 2016-11-19 18:11 | NUR ---
AMA pt wants to leave AMA, but would like an RX for antibiotics before she leaves. paged, waiting on orders.
--- NOTE | 2016-11-19 18:40 | NUR ---
discharge AMA pt is going to leave AMA. Rx for antibiotics given. pt is now requesting an Rx for pain medications.
--- NOTE | 2016-11-19 18:47 | NUR ---
as this RN was getting the AMA paperwork and reviewing the risks, the pt states that "I am going to latrell all of you". notified and aware.
--- NOTE | 2016-11-20 07:38 | PCM.PNMED ---
Subjective Date of Service Nov 19, 2016 Subjective Patient is seen and examined earlier. I sat down with her and discussed what been tried in terms of her transfer to [facility] and the fact that they declined to take her due to her high risk behavior. This a.m. I also called Dr. Harris at [facility] to discuss further options for the patient and she kindly agreed to discuss patient with her heart failure team as she could not manage the pt herself as inpatient. She will see if her HF team can take her as inpatient. they have them possibly manage her in the hospital and medications and see Dr. Harris as an outpatient if the patient can assure that she can take care of herself and maybe it is a possibility for her to get new valve. While I will keep trying to contact the big hospitals in the [facility], I also discussed hospice care in case we cannot find any placement for patient for valve replacement patient was quite calm during this discussion. It appears that she got agitated thereafter and it was really rude to Dr. Truong in front of me in the room and called him names, called the hospital names using rather foul language, after which we both left the room. Soon after she wanted to leave [facility] with some pain medication on board. I went back to see her in the room and I also told her she is better off staying here no matter what happens she is better off receivingf the medical care here than on the streets. She started saying that she wants the level of pain medication that hospice can provide while being considered for transfer and she does not understand why she cannot get high-dose pain medications while being considered for a transfer to outside hospitals. Off note we are trying to increase her pain medications on a regular basis to see if she would get enough comfort continue her pain medications increased to 10-25 mg oxycodone every 4 when necessary to control her pain. i explained to her that pain is a spectrum, it is not all or none and we will always try to help her in that regard. Patient stayed in the hospital there after. Exam Vital Signs Vital Sign - Last Date Time Temp Pulse Resp B/P Pulse Ox O2 Delivery O2 Flow Rate FiO2 11/19/16 05:07 36.7 66 18 108/63 98 Room Air Intake and Output 11/18/16 11/18/16 11/19/16 Cumulative From/Thru 15:00 23:00 07:00 11/16/16 20:48 - 11/19/16 06:33 Intake Total 1147 ml 400 ml 3445 ml Output Total 850 ml 4050 ml Balance 297 ml 400 ml -605 ml Intake Oral 1147 ml 400 ml 2627 ml IV Total 818 ml Output Urine Total 850 ml 4050 ml # Voids 3 3 Exam General patient is in no acute distress Psych: Patient got agitated upon alexander that [facility] declined a transfer, became very rude towards the staff.. Nuero: No focal deficits Skin: No change to her arm abscesses Cardiac: 3+ systolic murmur with radiation to neck Lungs are clear to auscultation Eyes: [place] conjunctivae. No ptosis, PERRL Neck: No masses, trachea midline, no thyromegaly Lungs: CTA with normal respiratory effort, no crackles or wheezes IVs and Medications Medications Reviewed: Medications were reviewed in detail Lab and Diagnostics Result Diagram: 11/18/16 0726 11/18/16 0726 X-Rays, CTs and MRIs [facility] Diagnostic [place] [address] Patient Name: DIANA HAIR MR#: [id number] Location: [facility] [place] Ordering Phys: Devon Turcios MD Date of Service: 11/16/162129 PROCEDURE: X-RAY CHEST ONE VIEW, PORTABLE ([id number]) INDICATIONS: chest pain TECHNIQUE: One view of the chest was acquired. COMPARISON: [facility], CR, XR CHEST 1VW (PORTABLE), 11/14/2016, 18: 00. FINDINGS: Surgical changes and devices: Median sternotomy wires. Lungs and pleura: No pleural effusions or pneumothorax. Lungs are clear. Mediastinum: Mediastinal contours appear normal. Heart size is normal. Bones and chest wall: No suspicious bony lesions. Overlying soft tissues appear unremarkable. IMPRESSION: No acute cardiopulmonary disease. Dictated by: Cirilo Garcia [facility] Interpreted: Anthony Hooker MD on 11/17/2016 at 8: 29 Approved by: Anthony Hooker M.D. on 11/17/2016 at 10:35 Assessment & Plan As per progress note prior to leaving [facility] and returning 3 hours later Ms. Diana Hair is a 36 year old woman with history of bacterial and fungal endocarditis, bio-prosthetic aortic valve replacement, and IV drug use who presented to the emergency department for retrosternal chest pain. history of recurrent endocarditis, present on admission. - Echocardiogram in 04/2016 showed echo lucency around bio-prosthetic valve consistent with valve dehiscence associated with severe aortic regurgitation - Lactic acid within normal limits. SIRS criteria not met at time of admission. Procalcitonin mildly elevated at 0.13 on admission. - Blood cultures performed prior admission and NGTD - MRSA screen ordered: neg - Infectious disease consulted in the ED. ID recommended starting vancomycin. His time and recommendations are appreciated. - Plan daily ESR - She indicated she will leave AGAINST MEDICAL ADVICE unless she receives IV pain medicine, but refused Toradol during prior admit. We will treat with oral pain medicine --MADHAV was unsuccessul as staff could not place an IV, she lost her foot IV yesterday. -- Discuss Vanc dosing with Dr. Truong: d/c vanc, her blood cx are negative -- Will attempt transfer to advanced care facility in the AM: Sloane Johnson: Dr. Bishop, Cardio thoracic surgeon declined transfer as pt continued drug use after receiving a prosthetic valve "she had one chance and she will not get another" -- Discontinued vanc after talking with Dr. Truong: He recommends that patient can be given one week of doxycycline and linezolid 600 mg twice a day in case she leaves AMA -Patient this a.m. and I had a discussion with her lisinopril and encouraged her to stay but became available providing and we will continue to try and transfer her while trying to increase her pain medication to provide her with discomfort however patient is encouraged and agitated and then said that she was in the hospital and everybody is involved in her care - Risk management was contacted -- Should patient decide to stay we will continue to try and transfer her to outside facilities for further care while giving her pain control to the extent that is possible. We tried [facility] on 11/19, on 11/18. Plan to contact other hospitals in the [facility] with CT surgery support -- If she leaves, will write a script for linezolid 600 mg PO BID Chest pain, acute, present on prior admission, resolved - Likely secondary to probable recurrent endocarditis. Differential diagnosis includes but not limited to: endocarditis given IV drug use with history of bacterial and fungal endocarditis with a bio-prosthetic valve, acute coronary syndrome, pneumonia, pneumothorax, or pulmonary embolism - Initial troponin negative and EKG did not show any concerning ST segment changes. CXR did not show any acute cardiopulmonary changes. She does not report a cough or dyspnea. - PERC rule score 1 based on initial elevated HR at 113 bpm and Wells' criteria 1.5 points, which is low risk for PE - D-dimer elevated - Monitor on telemetry - Antibiotics as below - CTA PE PRotocol: suspicious for lung nodules per Dr Wilhelm -- Pain meds increased to oxycodone 10-20 mg Q4HPRN, she wants hospice level IV Pain meds but does not want to sign up for hospice. Severe Aortic Regurgitation, poa active - She was declined for a transfer at [facility]. Dr. Bishop said that she may have the same problem with most other surgeons. Dr. Harris is discussing possible transfer to [facility] not too hopeful this will work. Chronic heroin dependence, present on admission, active. - Reported last IV heroin use today to ED - Drug screen positive for methamphetamines and opiates during the prior admission. - Symptomatic care with Zofran as needed for nausea/vomiting - Oxycodone as needed for pain as above, no indication for IV morphine that she is requesting: Dose doubled 10 mg Q4HPRN - Monitor blood pressure and if blood pressure stable, lorazepam for anxiety and/or clonidine for anxiety, hypertension, tachycardia - Social work referral placed right upper arm abscess, present on admission. - US of right upper arm ordered, surgical consult requested. - Infectious disease consulted as above left upper arm abscess, present on admission. - US of right upper arm ordered, surgical consult requested. - Infectious disease consulted as above -- US is ordered: "Complex fluid collection within the left lateral upper arm as above which could represent evolving hematoma or underlying abscess. No drainable fluid collection is seen. 2. Solid soft tissue mass within the left posterior arm. Findings are nonspecific and differential diagnosis would include both benign and malignant etiologies. If indicated soft tissue MRI could be performed." Consider I&D Chronic tobacco dependence, present on admission, active. - Nicotine patch as needed for nicotine withdrawal Depression, acute: -- Preg test, Prozac 10 mg QD -- Patient declined Prozac saying it does not work Trichomonas, POA: -- Patient's MANUAL EQUIPMENT MECHANIC Dr. August Rosas called and asked to give pt 2 g flagyl for trichomonas. She was givne this dose. CODE STATUS ; FULL CODE. Patient Status: Patient is continued under inpatient status with expected length of stay greater than 2 midnights due to severity of presenting symptoms, risk of adverse event, and complexity of treatment plan. VTE Prophylaxis: Sub-Q Heparin (Unfractionated) Resuscitation Status: CPR: Attempt Resuscitation GI Prophylaxis: Proton Pump Inhibitor VTE Prophylaxis: Sub-Q Heparin (Unfractionated) Resuscitation Status: CPR: Attempt Resuscitation Time spent 30 min Angelique Redding DO Nov 19, 2016 08:32
--- NOTE | 2016-11-20 07:40 | PCM.DC.MED ---
Discharge Summary Date of Service Nov 19, 2016 Dates of Hospitalization Date of Hospital Admission Nov 16, 2016 at 23:26 Date of Discharge: Nov 19, 2016 Providers: Admitting Physician: Angelique Jimenez DO Primary Care Physician: Yuliana Smith MD Attending Physician: Angelique Jimenez DO Diagnosis at Time of Discharge Diagnosis at Time of Discharge Probable Endocarditis, Biprosthetic AV valve dehiscence, UE abscesses from drug use, IVDU Consultations ID, caridology Procedures XRay, CTs & MRIs [facility] Diagnostic Imaging [place] [address] Patient Name: DIANA HAIR MR#: [id number] [place] [facility] [place] Ordering Phys: Devon Turcios MD Date of Service: 11/16/162129 PROCEDURE: X-RAY CHEST ONE VIEW, PORTABLE ([id number]) INDICATIONS: chest pain TECHNIQUE: One view of the chest was acquired. COMPARISON: [facility], CR, XR CHEST 1VW (PORTABLE), 11/14/2016, 18: 00. FINDINGS: Surgical changes and devices: Median sternotomy wires. Lungs and pleura: No pleural effusions or pneumothorax. Lungs are clear. Mediastinum: Mediastinal contours appear normal. Heart size is normal. Bones and chest wall: No suspicious bony lesions. Overlying soft tissues appear unremarkable. IMPRESSION: No acute cardiopulmonary disease. Dictated by: Cirilo Garcia [facility] Interpreted: Anthony Hooker MD on 11/17/2016 at 8: 29 Approved by: Anthony Hooker M.D. on 11/17/2016 at 10:35 Hospital Course Ms. Diana Hair is a 36 year old woman with history of bacterial and fungal endocarditis, bio-prosthetic aortic valve replacement, and IV drug use who presented to the emergency department for retrosternal chest pain. history of recurrent endocarditis, present on admission. - Echocardiogram in 04/2016 showed echo lucency around bio-prosthetic valve consistent with valve dehiscence associated with severe aortic regurgitation - Lactic acid within normal limits. SIRS criteria not met at time of admission. Procalcitonin mildly elevated at 0.13 on admission. - Blood cultures performed prior admission and NGTD - MRSA screen ordered: neg - Infectious disease consulted in the ED. ID recommended starting vancomycin. His time and recommendations are appreciated. - Plan daily ESR - She indicated she will leave AGAINST MEDICAL ADVICE unless she receives IV pain medicine, but refused Toradol during prior admit. We will treat with oral pain medicine --MADHAV was unsuccessul as staff could not place an IV, she lost her foot IV yesterday. -- Discuss Vanc dosing with Dr. Truong: d/c vanc, her blood cx are negative -- Will attempt transfer to advanced care facility in the AM: Sloane Johnson: Dr. Bishop, Cardio thoracic surgeon declined transfer as pt continued drug use after receiving a prosthetic valve "she had one chance and she will not get another" -- Discontinued vanc after talking with Dr. Truong: He recommends that patient can be given one week of doxycycline and linezolid 600 mg twice a day in case she leaves AMA -Patient this a.m. and I had a discussion with her lisinopril and encouraged her to stay but became available providing and we will continue to try and transfer her while trying to increase her pain medication to provide her with discomfort however patient is encouraged and agitated and then said that she was in the hospital and everybody is involved in her care - Risk management was contacted -- Should patient decide to stay we will continue to try and transfer her to outside facilities for further care while giving her pain control to the extent that is possible. We tried [facility] on 11/19, on 11/18. Plan to contact other hospitals in the state with CT surgery support -- If she leaves, will write a script for linezolid 600 mg PO BID -- Patient left AMA at around 5PM Chest pain, acute, present on prior admission, resolved - Likely secondary to probable recurrent endocarditis. Differential diagnosis includes but not limited to: endocarditis given IV drug use with history of bacterial and fungal endocarditis with a bio-prosthetic valve, acute coronary syndrome, pneumonia, pneumothorax, or pulmonary embolism - Initial troponin negative and EKG did not show any concerning ST segment changes. CXR did not show any acute cardiopulmonary changes. She does not report a cough or dyspnea. - PERC rule score 1 based on initial elevated HR at 113 bpm and Wells' criteria 1.5 points, which is low risk for PE - D-dimer elevated - Monitor on telemetry - Antibiotics as below - CTA PE PRotocol: suspicious for lung nodules per Dr Wilhelm -- Pain meds increased to oxycodone 10-20 mg Q4HPRN, she wants hospice level IV Pain meds but does not want to sign up for hospice. Severe Aortic Regurgitation, poa active - She was declined for a transfer at [facility]. Dr. Bishop said that she may have the same problem with most other surgeons. Dr. Harris is discussing possible transfer to [facility] not too hopeful this will work. Chronic heroin dependence, present on admission, active. - Reported last IV heroin use today to ED - Drug screen positive for methamphetamines and opiates during the prior admission. - Symptomatic care with Zofran as needed for nausea/vomiting - Oxycodone as needed for pain as above, no indication for IV morphine that she is requesting: Dose doubled 10 mg Q4HPRN - Monitor blood pressure and if blood pressure stable, lorazepam for anxiety and/or clonidine for anxiety, hypertension, tachycardia - Social work referral placed for consideration for palliative/hospice care right upper arm abscess, present on admission. - US of right upper arm ordered, surgical consult requested. - Infectious disease consulted as above left upper arm abscess, present on admission. - US of right upper arm ordered, surgical consult requested. - Infectious disease consulted as above -- US is ordered: "Complex fluid collection within the left lateral upper arm as above which could represent evolving hematoma or underlying abscess. No drainable fluid collection is seen. 2. Solid soft tissue mass within the left posterior arm. Findings are nonspecific and differential diagnosis would include both benign and malignant etiologies. If indicated soft tissue MRI could be performed." Consider I&D Chronic tobacco dependence, present on admission, active. - Nicotine patch as needed for nicotine withdrawal Depression, acute: -- Preg test, Prozac 10 mg QD -- Patient declined Prozac saying it does not work Trichomonas, POA: -- Patient's PRINCIPAL ACCOUNT CLERK Dr. August Rosas called and asked to give pt 2 g flagyl for trichomonas. She was givne this dose. CODE STATUS ; FULL CODE. Patient Status: Patient is continued under inpatient status with expected length of stay greater than 2 midnights due to severity of presenting symptoms, risk of adverse event, and complexity of treatment plan. VTE Prophylaxis: Sub-Q Heparin (Unfractionated) Resuscitation Status: CPR: Attempt Resuscitation GI Prophylaxis: Proton Pump Inhibitor VTE Prophylaxis: Sub-Q Heparin (Unfractionated) Resuscitation Status: CPR: Attempt Resuscitation Exam Vital Signs (Last) Date Time Temp Pulse Resp B/P Pulse Ox O2 Delivery O2 Flow Rate FiO2 11/19/16 15:40 36.7 68 18 105/[address] see progress note Test 11/16/16 22:30 11/18/16 07:26 Neutrophils (%) (Auto) 45.6% (40-74) Lymphocytes (%) (Auto) 44.1% (14-46) Monocytes (%) (Auto) 7.1% (4-12) Eosinophils (%) (Auto) 2.7% (0-5) Basophils (%) (Auto) 0.3% (0-3) Magnesium Level 1.9mg/dL (1.6-2.6) Troponin T < 0.010ug/L (0.0-0.011) Hold Owens Top Tube Received (Received) White Blood Count 8.4th/mm3 (3.8-10.1) Red Blood Count 3.58mil/mm3 (3.90-5.20) Hemoglobin 10.3g/dL (12.0-15.6) Hematocrit 32.4% (35.0-46.0) Mean Corpuscular Volume 90.5fL (81-100) Mean Corpuscular Hemoglobin 28.8pg (27.0-35.0) Mean Corpuscular Hemoglobin Concent 31.8% (32.0-37.0) Red Cell Distribution Width 13.2% (12.3-15.4) Platelet Count 228bil/L (150-400) Sodium Level 143mEq/L (134-144) Potassium Level 4.2mEq/L (3.5-5.2) Chloride Level 109mEq/L (97-108) Carbon Dioxide Level 22mmol/L (18-29) Blood Urea Nitrogen 12mg/dL (6-20) Creatinine 0.99mg/dL (0.57-1.00) Estimat Glomerular Filtration Rate 92mL/min (>59) Glucose Level 104mg/dL (60-99) Calcium Level 8.5mg/dL (8.5-10.1) Total Bilirubin 0.3mg/dL (0.0-1.2) Aspartate Amino Transf (AST/SGOT) 13U/L (0-50) Alanine Aminotransferase (ALT/SGPT) 9U/L (0-32) Alkaline Phosphatase 62U/L (25-150) Total Protein 6.3g/dL (6.4-8.4) Albumin 3.1g/dL (3.4-5.0) Vancomycin Level Trough 8.3mcg/mL Discharge Medications Discharge Medications Linezolid (Linezolid) 600 Mg Tablet 600 MG PO BID Prescribed by: ANGELIQUE JIMENEZ DO Time spent 1 hr total Angelique Jimenez DO Nov 19, 2016 18:31
== END 2016-11-19 19:51 | disposition left against medical advice (07) | DRG 289 ==
LOC: SED 20:44 → MPC 23:26
PROVIDERS: ADMIT Family Medicine; ATTEND Family Medicine
DX: I33.0 Acute and subacute infective endocarditis (principal); F11.20 Opioid dependence, uncomplicated; F17.200 Nicotine dependence, unspecified, uncomplicated; A59.9 Trichomoniasis, unspecified; L02.413 Cutaneous abscess of right upper limb; Z86.14 Personal history of Methicillin resistant Staphylococcus aureus infection; L02.414 Cutaneous abscess of left upper limb; I35.1 Nonrheumatic aortic (valve) insufficiency; Z91.19 Patient's noncompliance with other medical treatment and regimen; Z95.2 Presence of prosthetic heart valve

== ENCOUNTER 2017-01-14 19:22 | Emergency (ER) | payer OTHER ==
[~2017-01-14] VITALS: Ht 165.1 cm; Wt 70.5 kg
[~2017-01-14 19:22] MED LIST changes: -HYDR-3605 PO; +LINE600T7 PO; -ONDA-53 PO
[2017-01-14 19:29] VITALS: BP 133/76; PULSE 116; RESP 18; O2SAT 97
--- NOTE | 2017-01-14 21:16 | ED.REPORT ---
HPI-Rash / Abscess Date of Service Jan 14, 2017 ED Provider: Jeff Dobbins MD Pt is a 36 year old with a hx of IV drug abuse and bacterial endocarditis presenting to the ED complaining of pain, redness and swelling to her right arm onset 6 days ago. Associated symptoms include chest burning, abdominal and rib pain. Denies fever, chills, drainage, SOB, wheezing, nausea or vomiting. Pt requires surgery for her heart valve but has missed many appointments and been unable to maintain sobriety despite inpatient treatment and MAT. Pt repeatedly stating "I'm going to latrell you guys, I am in pain and you won't give me pain medication." Nursing Notes Stated Complaint: ABSCESS,HEART ISSUES Chief Complaint: Skin Rash/Abscess Nursing Notes Reviewed: Yes Allergies: Coded Allergies: No Known Allergies (Verified , 01/14/17) Scheduled Buprenorphine HCl/Naloxone HCl (Suboxone 8 mg-2 mg Sl Film) 1 Each Film 2 EACH SL DAILY Linezolid (Linezolid) 600 Mg Tablet 600 MG PO BID General Time Seen by MD: 21:13 Chief Complaint Abscess Hx Obtained From: Patient Arrived By: Walk-in Onset Occurred: 6 days ago Symptom Duration: Since onset Location: : Abdomen: Arm: Chest Quality: Painful Severity: Current: Severe Severity: Maximum: Severe Recent Healthcare: No recent doctor visit, No recent hospitalization Similar Sx Previous: Yes Past Medical History Past Medical History Notes: History of leaving AM History of bacterial endocarditis with subsequent prosthetic valve and endocarditis of prosthetic valve and valve replacement at [facility] in /March of this year. Consistently noncompliant with medical care and examined Past Medical History 1. Methicillin-sensitive Staph aureus aortic endocarditis diagnosed May 26, 2011, with completing eight weeks of antibiotics and a bioprosthetic valve placed in [place] July 2011, recurrent endocarditis 06/2015, patient left [facility] 2. Heroin dependency. IV drug abuse with heroin and methamphetamine use. 3. Cigarette smoker with nicotine addiction. 4. Irregular menses. 5. C. difficile colitis treated July 2011. 6. Hep C Past Surgical History x3 cholecystectomy bioprosthetic aortic valve placement August 11, 2011 admit L arm abscess surgery October 2014 Gallbladder Tonsills Family History noncontributory Smoking History Current Every Day Smoker Social History Alcohol Use: Denies alcohol use Drug Use: IV drugs, Meth, THC, Other Other Social History: Poor social support, Local resident Ambulatory Status Independent Review of Systems Constitutional: Denies: Chills, Fever Respiratory: Denies: Shortness of breath, Wheezing Cardiovascular: Reports: Chest pain GI: Denies: Nausea, Vomiting Skin: Reports Rash, Reports Swelling Complete sys rev & neg: except as marked. Physical Exam Initial Vital Signs Vital Signs (First) Date Time Temp Pulse Resp B/P Pulse Ox O2 Delivery O2 Flow Rate FiO2 01/14/17 19:29 36.8 116 18 133/76 97 Room Air Initial VS: Reviewed, Vital signs abnormal Head / Eyes: Atraumatic, Normocephalic, PERRL ENT: Mucous membranes moist, Conjunctiva normal, No scleral icterus Neck: Supple, Non-tender, Full range of motion Respiratory: Breath sounds normal, Clear to auscultation, No respiratory distress Abdomen / GI: Soft, Non-tender, No guarding, No rebound, No distention Extremities: Vascular intact, Neuro intact Neurologic: Alert, Oriented, Nonfocal General/Constitutional: Awake, Alert Angry, argumentative, threatening, has fixed delusions about her healthcare. Skin: Warm, Dry, Intact Large 4 x 6 cm erythematous indurated area with central softening consistent with an abscess on the left upper arm. Several healed scars from previous abscess drainages. Cardiovascular: No gallop, No rubs Heart Rate / Rhythm: Positive: Tachycardia Loud 4/6 systolic aortic valve murmur consistent with her diagnosis Interpretation & Diagnostics Urine toxicology dip positive for opiates, methamphetamine and oxycodone Lab Results Interpretation Result Diagram: 01/14/17 2255 01/14/17 2255 Test 01/14/17 22:55 01/14/17 23:10 01/14/17 23:17 01/15/17 01:32 White Blood Count 8.9th/mm3 (3.8-10.1) Red Blood Count 4.15mil/mm3 (3.90-5.20) Hemoglobin 11.5g/dL (12.0-15.6) Hematocrit 35.9% (35.0-46.0) Mean Corpuscular Volume 86.5fL (81-100) Mean Corpuscular Hemoglobin 27.7pg (27.0-35.0) Mean Corpuscular Hemoglobin Concent 32.0% (32.0-37.0) Red Cell Distribution Width 13.8% (12.3-15.4) Platelet Count 93bil/L (150-400) Neutrophils (%) (Auto) 57.1% (40-74) Lymphocytes (%) (Auto) 30.8% (14-46) Monocytes (%) (Auto) 6.7% (4-12) Eosinophils (%) (Auto) 4.9% (0-5) Basophils (%) (Auto) 0.2% (0-3) Hematology Comments Sodium Level 139mEq/L (134-144) Potassium Level 4.1mEq/L (3.5-5.2) Chloride Level 103mEq/L (97-108) Carbon Dioxide Level 21mmol/L (18-29) Blood Urea Nitrogen 16mg/dL (6-20) Creatinine 0.61mg/dL (0.57-1.00) Estimat Glomerular Filtration Rate 161mL/min (>59) Glucose Level 95mg/dL (60-99) Calcium Level 8.7mg/dL (8.5-10.1) Magnesium Level 1.8mg/dL (1.6-2.6) Total Bilirubin 0.4mg/dL (0.0-1.2) Aspartate Amino Transf (AST/SGOT) 18U/L (0-50) Alanine Aminotransferase (ALT/SGPT) 12U/L (0-32) Alkaline Phosphatase 66U/L (25-150) Total Protein 7.6g/dL (6.4-8.4) Albumin 3.8g/dL (3.4-5.0) Lactic Acid Level 0.6mmol/L (0.4-2.0) Hold Purple Top Tube Received (Received) Hold Spencer Top Tube Received (Received) Hold Urine Received (Received) Lab values outside NL range: no clinical significance. Lab Results Interpretation: Blood cultures pending, normal white blood count, normal lactic acid. ECG Interpretation ECG Interpretation: Sinus tacyhcardia. Probable left atrial enlargement. Time: 12:25 Interpreted by: ED physician Abnormal Rate: 110 (111) Procedures Incision & Drainage Abscess Time: 23:17 Procedure Performed by: ED physician Consent / Setup / Site Prep: Consent from patient, Time-out performed, Hand hygiene observed, Stand sterile technique, Standard surgical scrub, Sterile drapes applied Location of Abscess: Left upper arm Skin Preparation Agent: [place], Normal saline Local Anesthesia: Lidocaine w epi 1% Procedural Sedation/Analgesia: Sedation: Other (Ativan 2 mg IM), Analgesia: Dilaudid (2 mg IM) Incised Abscess with Scalpel: #11 Pus Drained: Medium, Purulent discharge, Bloody Irrigation: Copious Post-Procedure / Complications: Packing placed, Culture obtained, Gram stain ordered, Dressing applied, No complications, Condition improved, Tolerated procedure well, Patient stable Re-Eval/Medical Decision Med Decision/Clinical Course 36-year-old female with a long history of IV and IM heroin and methamphetamine use. She has had endocarditis intermittently since 2011. Most recently she has been told that she needs a valve replacement but they will not do it until she is clean and sober. She has failed multiple attempts at inpatient treatment , MAT with buprenorphine, and IOP. She currently is muscling methamphetamine and heroin. When she initially presented she was very antagonistic, accusatory , and delusional about medical issues. The man she was with encouraged her to treat the staff better. She was given Dilaudid 2 mg and Ativan 2 mg IM with marked improvement of her mood. She went from writing everything in a notebook and threatening lawsuits to being pleasant and cooperative. Her arm abscess was drained without incident. She was placed on clindamycin. We had a long discussion about her future and the need for successful MAT. She was given a prescription for 5 days of Suboxone and instructions on how to make an appointment. She seemed very positive about making another attempt at treatment. She is tachycardic and has a 4/6 systolic murmur consistent with previous exams. She is not febrile, her white count is normal, and her lactic acid is normal. Blood cultures are pending. We will contact her if blood cultures are positive. Re-Evaluation/Progress #1: Time of Eval: 21:42 Patient Status: Condition improved Re-Evaluation/Progress Note: Performed physical exam. Re-Evaluation/Progress #2: Time of Eval: 23:17 Patient Status: Condition improved Re-Evaluation/Progress Note: Performed I&D. Pt tolerated procedure well. Re-Evaluation/Progress #3: Time of Eval: 01:40 Patient Status: Condition improved Re-Evaluation/Progress Note: Discussed plan for discharge. Pt understands and agrees with plan. Discussed follow-up in the Suboxone clinic. Counseled Regarding: Diagnosis, Lab results, Need for follow-up, When/why to return to ED Discharge & Departure Impression: Primary Impression: Abscess of left arm Additional Impressions: Abuse of both oxycodone and heroin IVDU (intravenous drug user) Disposition: Home Discharge Condition All VS Reviewed: Yes Condition: Improved Patient Instructions: Abscess Incision and Drainage (DC) Additional Instructions: The wound needs to be redressed and repacked in 2 days. Return to the emergency room for that. Clindamycin 300 mg by mouth 4 times a day, prepack dispensed. Do not use any more meth or heroin. Suboxone 12/23, 2 pills sublingual daily, # 10 prescription written. Do not start this medicine until 24 hours after your last opiate/heroin use. Referrals: Yuliana Smith MD (PCP) Scribe Attestation Portions of this note were transcribed by Beryl Barraza. I, Dr. Dobbins personally performed the history, physical exam and medical decision-making; I reviewed and confirmed the accuracy of the information in the transcribed note. Signed by: Domo Armenta, 01/14/2017. copies to: Yuliana Smith MD, Jeff Neri MD Jan 14, 2017 21:16 BERYL BARRAZA Jan 14, 2017 21:25
[2017-01-14] MEDS ORDERED: Lidocaine 1%-Epi 1:100,000 20 mL Inj ONE (21:39)
[2017-01-14] MEDS ORDERED: HYDROmorphone 1 mg/mL Inj IM ONE (21:40)
[2017-01-14 23:02] LABS: BASOPHILS % (AUTO) 0.2 % (0-3); EOSINOPHILS % (AUTO) 4.9 % (0-5); MONOCYTES % (AUTO) 6.7 % (4-12); Mean Corpuscular Hemoglobin 27.7 pg (27.0-35.0); Mean Corpuscular Volume 86.5 fL (81-100); NEUTROPHILS % (AUTO) 57.1 % (40-74); Platelet Count 93 bil/L (150-400)
[2017-01-14 23:27] LABS: Magnesium 1.8 mg/dL (1.6-2.6)
[2017-01-15 02:06] VITALS: BP 102/51; PULSE 104; RESP 17; O2SAT 99
[2017-01-15] MEDS ORDERED: BUPR1FIL3 SL (02:16)
[2017-01-15 02:21] VITALS: BP 102/51; PULSE 104; RESP 17; O2SAT 99
[2017-01-15] MEDS ORDERED: _Clindamycin 150 mg Capsule PO SCH (06:30)
== END 2017-01-15 02:21 | disposition home or self-care (01) ==
LOC: SED 19:22
DX: L02.414 Cutaneous abscess of left upper limb (principal); F11.10 Opioid abuse, uncomplicated; F17.200 Nicotine dependence, unspecified, uncomplicated
CPT/HCPCS: 10061; 36415; 80053; 81025; 83605; 83735; 85025; 87040; 93005; 96372; 99285; J1170; J2060

== ENCOUNTER 2017-01-19 03:03 | Emergency (ER) | payer OTHER ==
[~2017-01-19] VITALS: Ht 165.1 cm; Wt 68.2 kg
[~2017-01-19 03:03] MED LIST changes: +BUPR1FIL3 SL
[2017-01-19 03:09] VITALS: BP 117/50; PULSE 91; RESP 20; O2SAT 100
--- NOTE | 2017-01-19 03:34 | ED.REPORT ---
HPI-Chest Pain Under 40 Date of Service Jan 19, 2017 ED Provider: Buddy Cortes MD A 36 year old female with a history of bacterial endocarditis, bioprosthetic aortic valve placement, IV heroin and methamphetamine abuse, and hepatitis C presents to the ED complaining of chest pain. The pt describes this pain as "burning in her heart" that began one day ago and has persisted since. She is concerned that her blood may be infected and is requesting the results of the blood cultures drawn on 01/14/2017. The pt does not take any heartburn medications. Nursing Notes Stated Complaint: HEART FEELS LIKE ITS BURNING Chief Complaint: General Complaint Nursing Notes Reviewed: Yes Allergies: Coded Allergies: No Known Allergies (Verified , 01/14/17) Scheduled Buprenorphine HCl/Naloxone HCl (Suboxone 8 mg-2 mg Sl Film) 1 Each Film 2 EACH SL DAILY Doxycycline Monohyd (Doxycycline Monohyd) 100 Mg Tablet 100 MG PO BID Famotidine (Pepcid) 20 Mg Tablet 20 MG PO BID Linezolid (Linezolid) 600 Mg Tablet 600 MG PO BID General Time Seen by MD: 03:33 Chief Complaint Chest pain Hx Obtained From: Patient Arrived By: Walk-in Sudden in Onset?: No Onset Occurred: 1 day ago Symptom Duration: Since onset Recent Healthcare: Recent doctor visit, Recent hospitalization Similar Sx Previous: Yes Past Medical History Past Medical History Notes: History of leaving AMA History of bacterial endocarditis with subsequent prosthetic valve and endocarditis of prosthetic valve and valve replacement at [facility] in /March of this year. Consistently noncompliant with medical care and examined Past Medical History 1. 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 Heroin dependency. IV drug abuse with heroin and methamphetamine use. 3. Cigarette smoker with nicotine addiction. 4. Irregular menses. 5. C. difficile colitis treated July 2011. 6. Hep C Past Surgical History x3 cholecystectomy bioprosthetic aortic valve placement August 11, 2011 admit L arm abscess surgery October 2014 Gallbladder Tonsills Family History noncontributory Smoking History Current Every Day Smoker Social History Alcohol Use: Denies alcohol use Drug Use: IV drugs, Meth, THC, Other Other Social History: Poor social support, Local resident Ambulatory Status Independent Review of Systems Respiratory: Denies: Non-productive cough, Shortness of breath Cardiovascular: Reports: Chest pain GI: Denies: Abdominal pain, Nausea, Vomiting Musculoskeletal: Denies: Back pain, Neck pain Complete sys rev & neg: except as marked. Physical Exam Initial Vital Signs Vital Signs (First) Date Time Temp Pulse Resp B/P Pulse Ox O2 Delivery O2 Flow Rate FiO2 01/19/17 03:09 36.4 91 20 117/50 100 Room Air Initial VS: Reviewed General/Constitutional: Awake, Alert Respiratory / Chest: Atraumatic, Breath sounds NL, Breath sounds = bilat, No respiratory distress Cardiovascular: Heart rate NL, Regular rhythm loud, bidirectional holosystolic and diastolic murmur Neck: Atraumatic, Supple, Full range of motion Abdomen: Atraumatic, Soft, Non-tender Back: Atraumatic, Full range of motion Lower Extremity / Pelvis / MS: Full range of motion, Neurologic intact, Vascular intact Skin: Color NL, Warm, Dry Neurologic: Oriented X3, Speech NL, No motor deficits, No sensory deficits Psychiatric: Affect NL, Mood NL Head / Eyes: Atraumatic, Normocephalic, PERRL, EOMI ENT: Atraumatic, Airway patent, Mucous membranes moist Upper Extremity / MS: Full range of motion, Neurologic intact, Vascular intact Interpretation & Diagnostics ECG Interpretation ECG Interpretation: normal sinus rhythm with a rate of 85 probable left atrial enlargement no atrial fibrillation Time: 03:18 Interpreted by: ED physician Re-Eval/Medical Decision Med Decision/Clinical Course 36-year-old with chronic IV and IM drug abuse, presents with burning chest discomfort. This is fairly chronic issue and recurrent tonight. She has declining function with a worsening systolic and diastolic murmur due to endocarditis of her valve. There is no indication of acute ischemic injury presently. No neurologic symptoms to suggest embolic disease. She continues to actively use drugs. The cardiothoracic staff at [facility] declined to replace her valve again, as she contaminated their first effort with ongoing IV drug use. Reportedly, the [facility] staffer considering her case. She is advised to follow up at [facility] were at [facility] for possible valve replacement. She is also advised that as long as she continues with ongoing drug abuse, there is no possibility of receiving any valve. Additionally, she asked for repeat prescription of her antibiotic, as she was unable to get it filled. Dr. Truong had recommended either doxycycline or linezolid orally. Doxycycline represcribed tonight. Source of Hx: Old records Re-Evaluation/Progress : Time of Eval: 03:33 Patient Status: Condition improved Re-Evaluation/Progress Note: Pt informed of the diagnosis and plan for discharge during the initial interview. The pt understands and agrees with the plan. All questions are addressed at this time. Counseled Regarding: Diagnosis, Need for follow-up, When/why to return to ED Discharge & Departure Primary Impression: Chest pain Chest pain type: unspecified Qualified Code: R07.9 - Chest pain, unspecified Additional Impressions: Prosthetic valve endocarditis Encounter type: initial encounter Qualified Code: T82.6XXA - Infection and inflammatory reaction due to cardiac valve prosthesis, initial encounter Polysubstance abuse Disposition: Home Discharge Condition All VS Reviewed: Yes Condition: Stable Patient Instructions: Endocarditis (ED) Additional Instructions: Doxycycline twice daily for ten days as previously prescribed. Follow-up with your doctor in the office. Follow-up with cardiac surgery group at [facility] and at [place]. Begin Pepcid twice daily. Referrals: Yuliana Smith MD (PCP) Scribe Attestation Portions of this note were transcribed by Rolanda Burciaga. I, Dr. Cortes personally performed the history, physical exam and medical decision-making; I reviewed and confirmed the accuracy of the information in the transcribed note. copies to: Yuliana Smith MD, Christopher W MD Jan 19, 2017 03:34 ROLANDA BURCIAGA Jan 19, 2017 03:46
[2017-01-19] MEDS ORDERED: DOXY-232 PO (03:49)
[2017-01-19] MEDS ORDERED: FAMO20T PO (03:50)
[2017-01-19] MEDS ORDERED: Pantoprazole 40 mg ER24 Tablet PO ONE (03:50)
[2017-01-19 04:15] VITALS: BP 111/61; PULSE 91; RESP 16; O2SAT 100
== END 2017-01-19 04:15 | disposition home or self-care (01) ==
LOC: SED 03:03
DX: R07.9 Chest pain, unspecified (principal); T82.6XXA Infection and inflammatory reaction due to cardiac valve prosthesis, initial encounter; F19.10 Other psychoactive substance abuse, uncomplicated; Y84.0 Cardiac catheterization as the cause of abnormal reaction of the patient, or of later complication, without mention of misadventure at the time of the procedure; Y93.9 Activity, unspecified; Y92.9 Unspecified place or not applicable; Y99.8 Other external cause status; F17.200 Nicotine dependence, unspecified, uncomplicated

== ENCOUNTER 2017-01-31 15:51 | Emergency (ER) | payer OTHER ==
[~2017-01-31] VITALS: Ht 165.1 cm; Wt 68.0 kg
[~2017-01-31 15:51] MED LIST changes: +DOXY-232 PO; +FAMO20T PO
[2017-01-31 15:59] VITALS: BP 141/69; PULSE 124; RESP 15; O2SAT 100
--- NOTE | 2017-01-31 16:07 | ED.REPORT ---
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 The patient was reportedly denied repeat aortic valve replacement due to her known ongoing IV drug abuse however has been told that if she is clean for 3 months and goes through rehabilitation that they will replace her aortic valve. The pt was arrested for outstanding warrants and told police that "she was dying." The pt is experiencing rib pain, dizziness, occasional chest pain and nausea which she states is her baseline. She not have any acute complaints. She denies fever, shortness of breath or abdominal pain. The pt states that she had an appointment with Dr. Garcias at [facility] three days ago and was told that she needed three months of rehabilitation treatment recorded before another aortic valve replacement would be considered. The pt claims to have last used IV drugs "months ago" and states that she will be making these appointments tomorrow. The pt has not had an echocardiogram in several months. The pt was last seen in this ED on 01/19/2017 (less than two weeks ago) at which time Dr. Truong recommended discharging the pt on doxycycline with follow up at Loc[facility] within [facility] in [place] or the [facility] for discussion of aortic valve replacement. Nursing Notes Stated Complaint: FIT FOR SENIOR CARE Chief Complaint: General Complaint Nursing Notes Reviewed: Yes Allergies: Coded Allergies: No Known Allergies (Verified , 01/31/17) Scheduled Buprenorphine HCl/Naloxone HCl (Suboxone 8 mg-2 mg Sl Film) 1 Each Film 2 EACH SL DAILY Doxycycline Monohyd (Doxycycline Monohyd) 100 Mg Tablet 100 MG PO BID Famotidine (Pepcid) 20 Mg Tablet 20 MG PO BID Linezolid (Linezolid) 600 Mg Tablet 600 MG PO BID General Time Seen by : 16:03 Chief Complaint Other (Fit for group home) Hx Obtained From: Patient, Police Arrived By: Police Sudden in Onset?: No Onset Occurred: More than a week ago... Symptom Duration: Since onset Recent Healthcare: Recent doctor visit, Recent hospitalization Similar Sx Previous: Yes Past Medical History Past Medical History Notes: History of leaving AMA History of bacterial endocarditis with subsequent prosthetic valve and endocarditis of prosthetic valve and valve replacement at [facility] in /March of this year. Consistently noncompliant with medical care and examined Past Medical History 1. 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 Heroin dependency. IV drug abuse with heroin and methamphetamine use. 3. Cigarette smoker with nicotine addiction. 4. Irregular menses. 5. C. difficile colitis treated July 2011. 6. Hep C Past Surgical History x3 cholecystectomy bioprosthetic aortic valve placement August 11, 2011 admit L arm abscess surgery October 2014 Gallbladder Tonsills Family History noncontributory Smoking History Current Every Day Smoker Social History Alcohol Use: Denies alcohol use Drug Use: IV drugs, Meth, THC, Other Other Social History: Poor social support, Local resident Ambulatory Status Independent Review of Systems rib pain Full Review of Systems Constitutional: Denies: Fever Respiratory: Denies: Non-productive cough, Shortness of breath Cardiovascular: Reports: Chest pain GI: Reports: Nausea, Denies: Abdominal pain Musculoskeletal: Denies: Neck pain Skin: Denies Rash Neurologic: Reports: Dizziness Complete sys rev & neg: except as marked. Physical Exam Vital Signs Vital Signs Date Time Temp Pulse Resp B/P Pulse Ox O2 Delivery O2 Flow Rate FiO2 01/31/17 15:59 36.6 124 15 141/69 100 Room Air Initial VS: Reviewed General/Constitutional: Awake, Alert, Not toxic appearing answering questions appropriately Head / Eyes: Atraumatic, Normocephalic, PERRL, EOMI ENT: Atraumatic, Airway patent, Mucous membranes moist Neck: Atraumatic, Supple, Full range of motion Respiratory / Chest: Breath sounds NL, Breath sounds = bilat, No respiratory distress well-healed scar on anterior chest well Cardiovascular: Heart rate NL, Regular rhythm, No gallop, No murmurs, No rubs harsh systolic murmur, right upper sternal border radiating to carotids Abdomen: Atraumatic, Soft, Non-tender Back: Atraumatic, Full range of motion Upper Extremities Upper Extremity / MS: Atraumatic, Full range of motion Lower Extremity / Pelvis / MS: Atraumatic, Full range of motion Skin: Color NL, Warm, Dry no splinter hemorrhages no classical signs of endocarditis on skin or nail exam Neurologic: Oriented X3, Speech NL, No motor deficits, No sensory deficits Psychiatric: Affect NL, Mood NL Interpretation & Diagnostics Lab Results Interpretation Result Diagram: 01/31/17189901/31/171899 Test 01/31/17 19:00 White Blood Count 6.9th/mm3 (3.8-10.1) Red Blood Count 3.80mil/mm3 (3.90-5.20) Hemoglobin 10.8g/dL (12.0-15.6) Hematocrit 33.8% (35.0-46.0) Mean Corpuscular Volume 88.9fL (81-100) Mean Corpuscular Hemoglobin 28.4pg (27.0-35.0) Mean Corpuscular Hemoglobin Concent 32.0% (32.0-37.0) Red Cell Distribution Width 14.2% (12.3-15.4) Platelet Count 214bil/L (150-400) Neutrophils (%) (Auto) 54.8% (40-74) Lymphocytes (%) (Auto) 35.3% (14-46) Monocytes (%) (Auto) 7.7% (4-12) Eosinophils (%) (Auto) 2.0% (0-5) Basophils (%) (Auto) 0.1% (0-3) Erythrocyte Sedimentation Rate 35mm/hr (0-32) Sodium Level 139mEq/L (134-144) Potassium Level 4.1mEq/L (3.5-5.2) Chloride Level 102mEq/L (97-108) Carbon Dioxide Level 24mmol/L (18-29) Blood Urea Nitrogen 18mg/dL (6-20) Creatinine 0.77mg/dL (0.57-1.00) Estimat Glomerular Filtration Rate 123mL/min (>59) Glucose Level 77mg/dL (60-99) Lactic Acid Level 1.7mmol/L (0.4-2.0) Calcium Level 8.6mg/dL (8.5-10.1) Total Bilirubin 0.3mg/dL (0.0-1.2) Aspartate Amino Transf (AST/SGOT) 17U/L (0-50) Alanine Aminotransferase (ALT/SGPT) 13U/L (0-32) Alkaline Phosphatase 57U/L (25-150) Troponin T < 0.010ug/L (0.0-0.011) C-Reactive Protein 0.4mg/dL (0.0-0.5) Pro-B-Type Natriuretic Peptide 291.3pg/mL (0-130) Total Protein 7.3g/dL (6.4-8.4) Albumin 3.5g/dL (3.4-5.0) Human Chorionic Gonadotropin, Qual Negative (Negative) Hold Owens Top Tube Received (Received) ECG Interpretation ECG Interpretation: normal sinus rhythm with a rate of 93 normal axis normal interval no ST segment elevation T wave inversions present in the anterior leads when compared to prior dated , EKG is unchanged Time: 17:35 Interpreted by: ED physician X-Ray Chest Interpretation Chest Xray Interpretation: IMPRESSION: There is no acute disease seen in the two-view chest x-ray. Dictated by: Jsoé Manuel Blunt M.D. on 01/31/2017 at 17:04 Approved by: José Manuel Blunt M.D. 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 The patient reports that she continues to see a cardiothoracic surgeon at [facility] for consideration of aortic valve replacement though has been told that they will not do this until she is clean. She tells me that she is not using any IV drugs however both myself and her nurse note what appear to be fresh track etienne on her arms. She is currently reporting intermittent body aches and chest discomfort though this is apparently her baseline. Here in the emergency department she is tachycardic with significant systolic murmur as described above. She is otherwise hemodynamically stable. The patient's presentation is concerning for possible endocarditis and I am also concerned as to the current status of her bioprosthetic valve. In reviewing her chart I am not able to see that she was ever fully treated for her fungal endocarditis. I discussed the patient with the cardiology team at [facility] in [place] and reviewed her most recent echocardiogram which apparently showed possible vegetations. From what I can gather she is not being actively treated for this. The patient is very challenging from a social and medical standpoint as she continues to actively use IV drugs though she has known failure of aortic valve which is potentially life-threatening. In discussing the patient with cardiology at [facility] as well as her electrical controls technician here at [facility] we feel that she should not receive a stat echocardiogram to evaluate the status of her current aortic valve. In the meantime we will also obtain laboratory studies and blood cultures. EKG: normal sinus rhythm with a rate of 93 normal axis normal interval no ST segment elevation T wave inversions present in the anterior leads when compared to prior dated , EKG is unchanged Chest X-Ray: IMPRESSION: There is no acute disease seen in the two-view chest x-ray. Laboratory studies obtained as below: CBC: no leukocytosis Hematocrit 3.8 CMP unremarkable Troponin negative Lactic acid 1.7 BNP 291.3 HCG negative Urine drug screen positive for amphetamines and opitaes UA unconvincing for UTI, sent for culture I ordered a stat echo however I was told that this could not be performed until first thing tomorrow morning. In discussing the patient with cardiology we have opted to admit her to the hospitalist service with plan for stat echocardiogram in the morning and further assessment of the status of her aortic valve. Police were informed that she would be admitted to the hospital and they departed the emergency room. Shortly thereafter I was informed by the patient's nurse that she had eloped from the emergency department. The patient clearly demonstrated decisional capacity. I had extensive conversations with her regarding the seriousness of her condition and the need for further evaluation. It would appear that she clearly used the opportunity of being admitted to escape from police custody. Police were notified as to the situation and we requested that they bring her back to the emergency department if they are able to apprehend her. Source of Hx: Old records Time of Eval: 20:35 Patient Status: Condition improved Re-Evaluation/Progress Note: Pt elopes from the ED. Consultation #1: Call Returned at: 17:06 Fitness Supervisor: Agrees with eval, Agrees with plan Note: Spoke with Dr. Ortiz [facility], regarding pt's case. Additional history of obtained. Echocardiogram cannot be performed at [facility] today. Consultation #2: Referral / Consult Name: Steffanie Ahn MD Consulted With: Cardiology Call Returned at: 19:18 Fitness Supervisor: Agrees with eval, Agrees with plan Note: Consulted with Dr. Ahn, electrical controls technician, regarding pt's case. Dr. Ahn recommends admission for echocardiogram. Consultation #3: Referral / Consult Name: Aaron Linares MD Consulted With: Hospitalist Call Returned at: 19:42 Fitness Supervisor: Agrees with eval, Agrees with plan Note: Spoke with Dr. Linares, hospitalist, regarding pt's case. Dr. Linares does not want to admit the pt. Consultation #4: Referral / Consult Name: Steffanie Ahn MD Call Returned at: 19:58 Fitness Supervisor: Agrees with eval, Agrees with plan Note: Spoke further with Dr. Ahn regarding pt's case. Consultation #5: Referral / Consult Name: Aaron Linares MD Consulted With: Hospitalist Call Returned at: 20:23 Fitness Supervisor: Agrees with eval, Agrees with plan, Accepts admit Note: Spoke with Dr. Linares, hospitalist, regarding pt's case. Dr. Linares agrees with the evaluation and agrees to admit the pt. Consultation #6: Referral / Consult Name: Aaron Linares MD Consulted With: Hospitalist Call Returned at: 21:51 Note: Dr. Linares updated on pt elopement. Counseled Regarding: Diagnosis, Lab results, Need for admission Discharge & Departure Primary Impression: Heart murmur Additional Impressions: Chest pain Chest pain type: unspecified Qualified Code: R07.9 - Chest pain, unspecified History of endocarditis History of aortic valve replacement Aortic valve disorder IV drug abuse Tachycardia At high risk for elopement Discharge Condition All VS Reviewed: Yes Condition: Stable Referrals: Yuliana Smith MD (PCP) Crit Care Except Billable Proc Time Spent: 105-134 minutes Services Performed: Patient management by me, Time spent at bedside, Reviewing test results, Reviewing imaging, Discussing patient care, Documentation in record Critical Care Notes: Multiple conversations with patient's electrical controls technician at [facility] as well as our cardiologists here at [facility]. Extensive arrangements for hospitalization and further assessment of the condition of her aortic valve which appears to be failing. Multiple conversations with the patient regarding the seriousness of her condition and need for further evaluation and likely surgical intervention. Scribe Attestation Portions of this note were transcribed by Honey Burciaga. I, Dr. Ricks personally performed the history, physical exam and medical decision-making; I reviewed and confirmed the accuracy of the information in the transcribed note. copies to: Yuliana Smith MD, Beck O MD Jan 31, 2017 16:07 HONEY BURCIAGA Jan 31, 2017 16:44
--- NOTE | 2017-01-31 17:07 | DRSVH ---
PROCEDURE: X-RAY CHEST, TWO VIEWS ([id number]) INDICATIONS: chest pain TECHNIQUE: 2 views of the chest were acquired. COMPARISON: [facility], CR, XR CHEST 1VW (PORTABLE), 11/16/2016, 22:01. FINDINGS: Surgical changes and devices: Previous sternotomy, aortic valve in place. Lungs and pleura: No pleural effusions or pneumothorax. Lungs are clear. Mediastinum: Mediastinal contours are normal. Heart size is normal. Bones and chest wall: No suspicious bony abnormalities. Soft tissues appear unremarkable. IMPRESSION: There is no acute disease seen in the two-view chest x-ray. Dictated by: José Manuel Blunt M.D. on 01/31/2017 at 17:04 Approved by: José Manuel Blunt M.D. on 01/31/2017 at 17:05
[2017-01-31 19:19] LABS: BASOPHILS % (AUTO) 0.1 % (0-3); MONOCYTES % (AUTO) 7.7 % (4-12); Mean Corpuscular Hemoglobin 28.4 pg (27.0-35.0); Mean Corpuscular Volume 88.9 fL (81-100); NEUTROPHILS % (AUTO) 54.8 % (40-74); Platelet Count 214 bil/L (150-400)
[2017-01-31 19:41] LABS: ERYTHROCYTE SEDIMENTATION RATE 35 mm/hr (0-32)
[2017-01-31 19:52] LABS: TROPONIN T < 0.010 ug/L (0.0-0.011)
[2017-01-31 20:35] LABS: APPEARANCE,URINE CLEAR (CLEAR,HAZY); COLOR,URINE STRAW (YELLOW)
[2017-01-31 20:36] LABS: OCCULT BLOOD,URINE TRACE (NEGATIVE); UROBILINOGEN,URINE NORMAL (NORMAL)
[2017-01-31] MEDS ORDERED: Ondansetron 2 mg/mL 2 mL Inj IVPUSH PRN (20:55)
[2017-01-31] MEDS ORDERED: Alum-Mag Hydrox-Simeth 30 mL Suspension PO PRN (20:55)
[2017-01-31] MEDS ORDERED: Polyethylene Glycol (PEG) 17 Gm Powder PO PRN (20:55)
--- NOTE | 2017-01-31 23:29 | PCM.DC.MED ---
Discharge Summary Date of Service Jan 31, 2017 Dates of Hospitalization Date of Hospital Admission 01/31/2017 Date of Discharge: Jan 31, 2017 Providers: Admitting Physician: Primary Care Physician: Yuliana Smith MD Attending Physician: Diagnosis at Time of Discharge Diagnosis at Time of Discharge Endocarditis Hospital Course Patient left AMA before she could be interviewed for admission Exam Vital Signs (Last) Date Time Temp Pulse Resp B/P Pulse Ox O2 Delivery O2 Flow Rate FiO2 01/31/17 15:59 36.6 124 15 141/69 100 Room Air Test 01/31/17 19:00 01/31/17 19:58 White Blood Count 6.9th/mm3 (3.8-10.1) Red Blood Count 3.80mil/mm3 (3.90-5.20) Hemoglobin 10.8g/dL (12.0-15.6) Hematocrit 33.8% (35.0-46.0) Mean Corpuscular Volume 88.9fL (81-100) Mean Corpuscular Hemoglobin 28.4pg (27.0-35.0) Mean Corpuscular Hemoglobin Concent 32.0% (32.0-37.0) Red Cell Distribution Width 14.2% (12.3-15.4) Platelet Count 214bil/L (150-400) Neutrophils (%) (Auto) 54.8% (40-74) Lymphocytes (%) (Auto) 35.3% (14-46) Monocytes (%) (Auto) 7.7% (4-12) Eosinophils (%) (Auto) 2.0% (0-5) Basophils (%) (Auto) 0.1% (0-3) Erythrocyte Sedimentation Rate 35mm/hr (0-32) Sodium Level 139mEq/L (134-144) Potassium Level 4.1mEq/L (3.5-5.2) Chloride Level 102mEq/L (97-108) Carbon Dioxide Level 24mmol/L (18-29) Blood Urea Nitrogen 18mg/dL (6-20) Creatinine 0.77mg/dL (0.57-1.00) Estimat Glomerular Filtration Rate 123mL/min (>59) Glucose Level 77mg/dL (60-99) Lactic Acid Level 1.7mmol/L (0.4-2.0) Calcium Level 8.6mg/dL (8.5-10.1) Total Bilirubin 0.3mg/dL (0.0-1.2) Aspartate Amino Transf (AST/SGOT) 17U/L (0-50) Alanine Aminotransferase (ALT/SGPT) 13U/L (0-32) Alkaline Phosphatase 57U/L (25-150) Troponin T < 0.010ug/L (0.0-0.011) C-Reactive Protein 0.4mg/dL (0.0-0.5) Pro-B-Type Natriuretic Peptide 291.3pg/mL (0-130) Total Protein 7.3g/dL (6.4-8.4) Albumin 3.5g/dL (3.4-5.0) Human Chorionic Gonadotropin, Qual Negative (Negative) Hold Owens Top Tube Received (Received) Urine Color Straw (YELLOW) Urine Appearance Clear (CLEAR,HAZY) Urine pH 8.0 (5.0-8.0) Urine Specific [place] 1.015 (1.003-1.035) Urine Protein Tracemg/dL (NEG,TRACE) Urine Glucose (UA) Negativemg/dL (NEGATIVE) Urine Ketones Negativemg/dL (NEGATIVE) Urine Occult Blood Trace (NEGATIVE) Urine Nitrite Negative (NEGATIVE) Urine Bilirubin Negative (NEGATIVE) Urine Urobilinogen Normalmg/dL (NORMAL) Urine Leukocyte Esterase Trace (NEGATIVE) Urine RBC 0-2/hpf (0-2) Urine WBC 0-5/hpf (0-5) Urine Epithelial Cells Moderate/hpf (NONE-MOD) Urine Crystals None seen (NONE SEEN) Urine Bacteria Few/hpf (NONE-FEW) Urine Hyaline Casts None/lpf (NONE) Urine Granular Casts None seen (NONE SEEN) Urine Waxy Casts None seen (NONE SEEN) Urine Red Blood Cell Casts None seen (NONE SEEN) Urine White Blood Cell Casts None seen (NONE SEEN) Urine Mucus Present (None Seen) Urine Trichomonas None seen (NONE SEEN) Urine Yeast None (NONE SEEN) Urinalysis Comment None Urine Culture Reflexed Indicated Urine Opiates Screen Positive Urine Methadone Screen Negative Urine Barbiturates Screen Negative Urine Amphetamines Screen Positive Urine Benzodiazepines Screen Negative Urine Cocaine Metabolite Screen Negative Urine Cannabinoids Screen Negative Discharge Medications Discharge Medications Buprenorphine HCl/Naloxone HCl (Suboxone 8 mg-2 mg Sl Film) 1 Each Film 2 EACH SL DAILY Prescribed by: ROLAND PITTS MD Doxycycline Monohyd (Doxycycline Monohyd) 100 Mg Tablet 100 MG PO BID Prescribed by: LYLE ALFORD MD Famotidine (Pepcid) 20 Mg Tablet 20 MG PO BID Prescribed by: LYLE ALFORD MD Linezolid (Linezolid) 600 Mg Tablet 600 MG PO BID Prescribed by: MARIJA JIMENEZ DO Followup Plan Disposition: Patient left AMA without treatment Attending Statement The patient was seen and examined together with Dr. Thompson on 01/31 and I agree with the history, exam and plan as outlined in the note above. Marcela Thompson DO Jan 31, 2017 23:29 Aaron Linares MD Feb 01, 2017 19:27
== END 2017-01-31 21:12 | disposition left against medical advice (07) ==
LOC: SED 15:51 → UNDOADMOB 19:53 → MPC 19:53 → SED 21:12
DX: R01.1 Cardiac murmur, unspecified (principal); R07.9 Chest pain, unspecified; R00.0 Tachycardia, unspecified; I33.0 Acute and subacute infective endocarditis; I35.9 Nonrheumatic aortic valve disorder, unspecified; F19.10 Other psychoactive substance abuse, uncomplicated; Z95.2 Presence of prosthetic heart valve; Z86.79 Personal history of other diseases of the circulatory system; Z86.14 Personal history of Methicillin resistant Staphylococcus aureus infection; F17.200 Nicotine dependence, unspecified, uncomplicated
CPT/HCPCS: 36415; 71020; 80053; 81000; 81002; 83605; 83880; 84484; 84703; 85025; 85651; 86140; 87040; 87086; 87088; 87147; 87186; 93005; 99291; 99292; G0480

== ENCOUNTER 2017-02-12 14:14 | Emergency (ER) | payer OTHER ==
[~2017-02-12] VITALS: Ht 165.1 cm; Wt 70.5 kg
[2017-02-12 14:18] VITALS: BP 120/26; RESP 14; O2SAT 100
--- NOTE | 2017-02-12 15:07 | ED.REPORT ---
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 Her current pain is similar to her previous episodes of chest pain when she had endocarditis. No specific factors exacerbate or alleviate her pain. She also reports myalgia, similar to her previous visits. There are no new complaints today. She repeatedly states she will leave if she is not immediately given pain medication. Nursing Notes Stated Complaint: SOB/CHEST PAIN/ABDOMINAL PAIN Chief Complaint: General Complaint Nursing Notes Reviewed: Yes Allergies: Coded Allergies: No Known Allergies (Verified , 01/31/17) Scheduled Buprenorphine HCl/Naloxone HCl (Suboxone 8 mg-2 mg Sl Film) 1 Each Film 2 EACH SL DAILY Doxycycline Monohyd (Doxycycline Monohyd) 100 Mg Tablet 100 MG PO BID Famotidine (Pepcid) 20 Mg Tablet 20 MG PO BID Linezolid (Linezolid) 600 Mg Tablet 600 MG PO BID General Time Seen by MD: 15:50 Chief Complaint Chest pain Hx Obtained From: Patient Arrived By: Police Sudden in Onset?: Yes Onset Occurred: 1 - 4 hours ago Symptom Duration: Since onset Location: : Chest Quality: Painful Radiation: : Does not radiate Severity: Current: Moderate Severity: Maximum: Moderate Recent Healthcare: Recent doctor visit Similar Sx Previous: Yes Past Medical History Past Medical History Notes: History of leaving AMA History of bacterial endocarditis with subsequent prosthetic valve and endocarditis of prosthetic valve and valve replacement at [facility] in /March of this year. Consistently noncompliant with medical care and examined Past Medical History 1. 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 Heroin dependency. IV drug abuse with heroin and methamphetamine use. 3. Cigarette smoker with nicotine addiction. 4. Irregular menses. 5. C. difficile colitis treated July 2011. 6. Hep C Past Surgical History x3 cholecystectomy bioprosthetic aortic valve placement August 11, 2011 admit L arm abscess surgery October 2014 Gallbladder Tonsills Family History noncontributory Smoking History Current Every Day Smoker Social History Alcohol Use: Denies alcohol use Drug Use: IV drugs, Meth, THC, Other Other Social History: Poor social support, Local resident Ambulatory Status Independent Review of Systems Full Review of Systems Cardiovascular: Reports: Chest pain Musculoskeletal: Reports: Myalgia Complete sys rev & neg: except as marked. Physical Exam Nursing note and vitals reviewed. Constitutional: Disheveled middle aged female who is sitting up in the bed. She appears uncomfortable. Head: Normocephalic and atraumatic. Mouth/Throat: Oropharynx is clear and moist. No oropharyngeal exudate. Eyes: EOM are normal. Pupils are equal, round, and reactive to light. Neck: Supple, no tracheal deviation. Cardiovascular: Normal rate, regular rhythm. Equal and intact distal pulses throughout. IV/ systolic murmur. Pulmonary/Chest: Effort normal and breath sounds normal. No respiratory distress. Abdominal: Soft. No distension. There is no tenderness, rebound, or guarding. Bowel sounds present. Musculoskeletal: Range of motion grossly intact, moving all extremities. No edema or tenderness appreciated. Neurological: AOx3. Grossly nonfocal exam. Strength and sensation intact and equal to bilateral upper and lower extremities. Skin: Warm and dry, no rashes or pallor appreciated. Psychiatric: Agitated, otherwise appropriate mood and affect. Vital Signs Vital Signs Date Time Temp Pulse Resp B/P Pulse Ox O2 Delivery O2 Flow Rate FiO2 02/12/17 14:18 36.9 14 120/26 100 Initial VS: Reviewed Interpretation & Diagnostics ECG Interpretation ECG Interpretation: Normal sinus rhythm. Rate 56. Probable left ventricular hypertrophy. Abnormal T, consider ischemia, anterolateral leads. Time: 14:43 Interpreted by: ED physician Re-Eval/Medical Decision Med Decision/Clinical Course In summary, 36-year-old female with a long-standing history of IV drug abuse, endocarditis presenting to the ED for evaluation of severe chest pain. Differential is broad and includes endocarditis, ACS, aortic dissection, pneumothorax, etc. Upon my initial evaluation of the patient, she is stating that she would like to leave immediately if she does not receive pain medication. I offered her Toradol, and she agreed to this, however while awaiting the nurse to get the patient's medication, she walked out of the room and out of the emergency department. I was unable to give her any return precautions, discharge instructions, or to discuss leaving against medical advice as she walked directly out of the emergency department. No further workup performed secondary to patient cooperation. Source of Hx: Old records Time of Eval: 16:00 Re-Evaluation/Progress Note: Though the pt was informed that a Toradol shot has been ordered and will be administered soon, she eloped. Discharge & Departure Primary Impression: Chest pain Chest pain type: unspecified Qualified Code: R07.9 - Chest pain, unspecified Disposition: AGAINST MEDICAL ADVICE Discharge Condition All VS Reviewed: Yes Referrals: Yuliana Smith MD (PCP) Scribe Attestation Portions of this note were transcribed by Sadia Teresa. I,, personally performed the history,physical exam and medical decision-making;I reviewed and confirmed the accuracy of the information in the transcribed note. Signed by Domo Arteaga. 02/12/17 copies to: Yuliana Smith MD, William B MD Feb 12, 2017 15:07 Sadia Teresa Feb 12, 2017 15:57
== END 2017-02-12 16:28 | disposition left against medical advice (07) ==
LOC: SED 14:14 → EDBD 14:14 → SED 16:28
DX: R07.2 Precordial pain (principal); F17.210 Nicotine dependence, cigarettes, uncomplicated; F11.20 Opioid dependence, uncomplicated; Z90.49 Acquired absence of other specified parts of digestive tract; Z86.79 Personal history of other diseases of the circulatory system; Z95.2 Presence of prosthetic heart valve; Z86.14 Personal history of Methicillin resistant Staphylococcus aureus infection